=== PATIENT | female | born 1935 | race Caucasian/White ===

== ENCOUNTER 2023-04-21 18:29 | Inpatient (IN) | payer MEDICARE, OTHER, SELFPAY ==
[2023-04-21] VITALS (14 sets, daily range): BP systolic 126–147; BP diastolic 73–116; PULSE 106; O2SAT 99; BMI 21.2; BMI 18.7
[2023-04-21 11:24] LABS: % Basophils 0.3 % (0-2); % Eosinophils 1.3 % (0-6); % Immature Granulocytes 0.4 % (0-0.5); % Lymphocytes 21.1 % (20.5-51.1); % Monocytes 4.9 % (1.7-9.3); Absolute Eosinophils 0.2 10^3/uL (0-0.7); Absolute Immature Granulocytes 0.1 10^3/uL (0-0.05); Absolute Lymphocytes 2.5 10^3/uL (1.2-3.4); Absolute Monocytes 0.6 10^3/uL (0.1-0.6); Absolute Neutrophils 8.6 10^3/uL (1.4-6.5); Hematocrit 42.4 % (37.0-47.0); Hemoglobin 14.7 g/dL (12.0-16.0); Mean Corp Hgb Conc. 34.7 g/dL (33.0-37.0); Mean Corpuscular Hgb 30.6 pg (27.0-31.0); Mean Corpuscular Volume 88.3 fL (81.0-99.0); Mean Platelet Volume 9.7 fL (7.4-10.4); Nucleated Red Blood Cells % 0 %; Platelet Count 258 10^3/uL (130-400); Red Cell Dist. Width 13.9 % (11.5-14.5); White Blood Cell Count 11.9 10^3/uL (4.8-10.8)
[2023-04-21 11:37] LABS: ALT (SGPT) 47 U/L (0-35); AST (SGOT) 54 U/L (14-36); Alkaline Phosphatase 49 U/L (38-126); Blood Urea Nitrogen 31 mg/dl (7-17); Calcium 7.5 mg/dl (8.4-10.2); Carbon Dioxide 26 mmol/L (22-30); Chloride 108 mmol/L (98-107); Estimated Creatinine Clearance 28 ml/min; Glucose 94 mg/dl (70-99); Potassium 3.1 mmol/L (3.5-5.1); Sodium 136 mmol/L (135-145); Total Bilirubin 0.5 mg/dl (0.2-1.3); Total Protein 5.3 g/dl (6.3-8.2); eGFR 48.63
[2023-04-21] MEDS: NSS 500 IV (12:51)
[2023-04-21] MEDS: MAALOX 40 PO (12:51)
[2023-04-21] MEDS: PROTONIX IV 40 MG IV (12:51)
[2023-04-21 13:35] LABS: Troponin I < 0.012 ng/ml
[2023-04-21] MEDS: KCL 40 MEQ PO (13:35)
--- NOTE | 2023-04-21 16:34 | ED.GENMED ---
History of Present Illness
General
Chief Complaint: Weakness
Source: patient
Exam Limitations: none
Time Seen by Provider: 04/21/23 12:22
Nursing documentation reviewed up to this point in time: agreed with
Travel History
Have you had any contact with someone who has COVID-19?: No
Do you have any symptoms of coronavirus? Fever > 100 degrees, chills, cough, shortness of breath, sore throat, loss of taste or smell, muscle aches, or headache?: No
History of Present Illness
History of Present Illness:
Patient presents to ED from home secondary to 1 week history of persistently 'not feeling well' and decreased appetite, after taking mail ordered marijuana gummies. Denies headache. Denies dizziness. Denies blurred vision. Denies abdominal pain.
Denies chest pain or shortness of breath. Patient reports intermittent vomiting episodes. Patient has had difficult time ambulating due to generalized weakness.
Past History
Past History
ED Past Medical History: Arrthythmia (Atrial fibrillation), COPD, HTN and Other (sciatica)
ED Past Surgical History: Orthopedic
Social History
Tobacco: Smoker (smokes E-cigarettes.Stopped smoking regular cigarettes)
Alcohol: Occasional
Drug: None
Personal:
Living: with family
Review of Systems
Review of Systems
Allergies reviewed?: Yes
All Other Systems: ROS reviewed and negative except as documented in HPI and ROS
Constitutional: Reports no symptoms; Denies not done or fever
EENT: Reports no symptoms
Respiratory: Reports no symptoms
Cardiac: Reports no symptoms
ABD/GI: Reports nausea and vomiting
: Reports no symptoms
Musculoskeletal: Reports no symptoms
Skin: Reports no symptoms
Neurological: Reports weakness
Phy Exam
Physical Exam
Physical Exam:
Physical Exam
General: no apparent distress, not acutely ill. afebrile
Head: nc/at. eomi
Neck: supple. no meningeal signs.
Heart: s1/s2 regular rate and rhythm, no murmur. equal radial pulses.
Lungs: no acute respiratory distress. clear bilaterally
Abdomen: normal bowel sounds. not tender.
Neuro: alert and oriented. no focal neurological deficits
Skin: no rash
Psychiatric: well kept. interactive and cooperative
Extremities: no edema. no calf tenderness.
Course
Orders/Labs/Results
Orders:
Orders
04/21/23 11:12
EKG [Electrocardiogram (*1)] Urgent
Reason for Study: Fatigue / Weakness
EKG- Treatment ONCE
04/21/23 11:18
CBC/With Diff [Complete Blood Count/With Diff] Urgent
CMP [Comprehensive Metabolic Panel] Urgent
Lipase Urgent
Comment: LIPASE ADDED ON BY FLOOR 4:25PM 04-21-23
04/21/23 12:33
Mag Hydrox/Al Hydrox/Simeth [Maalox] 30 ml Phenobarb/Hyoscy/Atropine/Scop [] 10 ml PO NOW
Pantoprazole [Protonix IV] 40 mg IV NOW STA
04/21/23 12:34
0.9% Sodium Chloride 500 ml [Nss] 500 ml IV BOLUS
04/21/23 12:39
Phenobarb/Hyoscy/Atropine/Scop [] 10 ml .ROUTE .STK-MED ONE
04/21/23 12:40
Mag Hydrox/Al Hydrox/Simeth [Maalox] 30 ml .ROUTE .STK-MED ONE
04/21/23 12:54
Troponin I Urgent
04/21/23 13:11
Potassium Chloride [KCl] 40 meq PO NOW STA
04/21/23 16:25
Add On- LAB Urgent
Tests Added?: lipase
Physical Therapy Consult [Pt Eval And Treat] Urgent
Activity Level: Ambulate
04/21/23 16:42
Apixaban [Eliquis] 2.5 mg PO NOW STA
04/21/23 16:49
Straight cath- Treatment ONCE
04/21/23 17:00
0.9% Sodium Chloride 1000 ml [Nss] 1,000 ml IV 100 mls/hr
04/21/23 17:25
Fentanyl, Urine Routine
Urinalysis Reflex To Culture Urgent
Date Specimen was Collected: 04/21/23
Time Specimen was Collected: 12:35
Urine Drug Abuse Screen Routine
Date Specimen was Collected: 04/21/23
Time Specimen was Collected: 17:13
Urine Microscopic Reflex Cult Urgent
04/21/23 17:32
Admit/Transfer Patient As Directed
Co-Sign Provider:
Level of Care: Inpatient admission
Assign to:: Telemetry
Physician / Group: Isidoro
Diagnosis: Weakness
Reason for Telemetry: Arrhythmia
Date to Stop Telemetry: 04/24/23
Time to Stop Telemetry: 11:00
Reason for Hospitalization: See progress note
Expected length of stay greater than two midnights?: Yes
ELOS- Estimated Length of Stay in days: 2
I certify the patient meets the requirements for IP care: Yes
04/21/23 17:37
Code Status As Directed
Resuscitation Status: Full Code
Reached after discussion with pt or family/Healthcare POA: Yes
Physician note:: per pt wishes
04/21/23 20:41
0.9% Sodium Chloride 1000 ml [Nss] 1,000 ml IV 80 mls/hr
Acetaminophen [Tylenol] 650 mg PO Q4HPRN PRN
Ascorbic Acid [Vitamin C] 500 mg PO QPM
Cholecalciferol (Vitamin D3) [VITAMIN D3 (cholecalciferol)] 125 mcg PO QPM
Ondansetron Injectable [Zofran] 4 mg IV Q6HPRN PRN
oxycodone-acetaminophen 1 tablet PO Q4H PRN
04/21/23 20:41
Activity As Directed
Activity Level: As Tolerated
I&O [Intake/ Output] As Directed
Frequency: q12h
Ot Eval And Treat Routine
Pt Eval And Treat Routine
Activity Level: As Tolerated
04/21/23 22:00
Amlodipine [Norvasc] 10 mg PO HS
Gabapentin [Neurontin] 600 mg PO HS
Mirtazapine [Remeron] 30 mg PO HS
Primidone [Mysoline] 25 mg PO HS
04/21/23 22:31
COVID-19 Antigen Routine
Source: Nasal Swab
04/22/23 06:44
CBC/No Diff [Complete Blood Count/No Diff] IN AM
CMP [Comprehensive Metabolic Panel] IN AM
04/22/23 08:00
Apixaban [Eliquis] 2.5 mg PO BID
Bupropion(12Hr)Sustain Release [WELLBUTRIN SR (12 hour sustained release)] 100 mg PO DAILY
Escitalopram Oxalate [Lexapro] 20 mg PO DAILY
Hydrochlorothiazide [Oretic] 50 mg PO DAILY
Lisinopril [Zestril] 40 mg PO DAILY
naloxegol [Movantik] See Dose Instructions PO DAILY
04/24/23 11:00
DC Protocol for Telemetry ONCE
Abnormal Lab Results
04/21/23 04/21/23
11:18 17:25
WBC 11.9 H 10^3/uL
(4.8-10.8)
Abs Immat Gran (auto) 0.1 H 10^3/uL
(0-0.05)
Absolute Neuts (auto) 8.6 H 10^3/uL
(1.4-6.5)
Potassium 3.1 L mmol/L
(3.5-5.1)
Chloride 108 H mmol/L
(98-107)
BUN 31 H mg/dl
(7-17)
Creatinine 1.1 H mg/dL
(0.6-1.0)
Calcium 7.5 L mg/dl
(8.4-10.2)
AST 54 H U/L
(14-36)
ALT 47 H U/L
(0-35)
Total Protein 5.3 L g/dl
(6.3-8.2)
Albumin 3.0 L g/dl
(3.5-5.0)
Urine Ketones 1+ A
(Negative)
Leukocyte Esterase Rfl Trace A
(Negative)
Ur Oxycodone Screen Positive H
(Negative)
Ur Barbiturates Screen Positive H
(Negative)
U Marijuana (THC) Screen Positive H
(Negative)
04/21/23 11:18
04/21/23 11:18
Vital Signs
Initial and Last Documented VS:
Initial Vital Signs
Pulse Resp Pulse Ox
93 21 96
04/21/23 11:11 04/21/23 11:11 04/21/23 11:11
Last Documented Vital Signs
Temp Pulse Resp BP Pulse Ox
97.3 F 97 16 142/85 93
04/22/23 07:52 04/22/23 12:31 04/22/23 07:52 04/22/23 12:31 04/22/23 08:50
MDM/Problems Addressed
MDM/Problems Addressed:
Physical therapy evaluation unable to completed, as when patient sat up in bed, patient became lightheaded with tachycardia with heart rate in 160s. Patient laid back down in bed with improvement in symptoms. Patient's presenting symptoms along
with blood work remarkable for hypokalemia and increased BUN to creatinine ratio, suggestive of moderate dehydration from ongoing illness. Patient will be admitted for further evaluation and treatment.
Per niece, Florina Perkins, patient usually in a.fib rhythm.
*Critical Care Note
Total Time (30-74mins, 75-104mins- exclusive of procedures): Not Applicable
ED Attending Note
-
Portions of this chart may have been created with voice recognition software.� Occasional wrong word or��sound alike� substitutions may have occurred due to the inherent limitations of voice recognition software.
Discharge Plan
Departure
Patient Disposition: Admit
Date of Disposition: 04/21/23
Time of Disposition: 16:56
Presentation/result/management discussed w/ accepting MD/DO: Hospitalist
Discharge Problem:
Weakness, Atrial fibrillation
Interventions
Interventions:
*Risk Screen - Suicide Last Done: 04/21/23 11:13
*General Assessment Last Done: 04/21/23 11:13
*Neglect/Abuse Screening Last Done: 04/21/23 11:13
ED- Fall Risk Assessment Last Done: 04/21/23 11:23
*ED COVID-19 Vaccine History Last Done: 04/21/23 21:54
*Nursing Disposition Last Done: 04/21/23 20:58
ED- Cardiac Assessment Last Done: 04/21/23 11:23
ED- Neurological Assessment Last Done: 04/21/23 11:23
ED- Pulmonary Assessment Last Done: 04/21/23 11:23
Discharge Date and Time
Discharge Date/Time: 04/21/23 20:59
[2023-04-21 17:01] LABS: Lipase 217 U/L (23-300)
[2023-04-21] MEDS: NSS 1000 IV ×2 (17:31→22:21)
[2023-04-21 17:39] LABS: Urine Albumin Trace (Neg - Trace); Urine Bilirubin Negative (Negative); Urine Character Clear (Clear); Urine Color Yellow; Urine Glucose Negative (Negative); Urine Ketone 1+ (Negative); Urine Leukocyte Trace (Negative); Urine Nitrite Negative (Negative); Urine Occult Blood Negative (Negative); Urine Specific Gravity 1.015 (<1.030); Urine Urobilinogen Negative (Neg - 1+)
--- NOTE | 2023-04-21 17:42 | HPS.HSE ---
Family Physician
-
Family Physician: Derrick Olmstead
Chief Complaint
-
Weakness
History of Present Illness
Presents with weakness.
Last week she has been feeling weaker going down to help. Usually very active. 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
She has a visiting nurse telling her yesterday that she should go to the hospital and she promised her that she would today.
The nurse saw her much the same with increased weakness she called the ambulance or not the patient.
She cannot pinpoint why she started to become weak but she does admit to ordering ?marijuana Gummies from [employer].Not a prescription tx. She is not sure if it marijuana or CBD Gummies.
She started to lose appetite. She is not eating much. Nausea present. No diarrhea. For the last day or so she was having a mild to moderate central upper abdominal pain with nausea.
No fever or chills.
Denies any sore throat, cough or shortness of breath. No chest pain.
Denies any symptoms of dysuria frequency or changes in urine habits.
No joint pains or swellings.
She has permanent atrial fibrillation. She endorses she is always in A-fib. Her heart rate was up in ER but she was not having any palpitations or chest pain.
Medical History
Past Medical History
Past Medical History: Reports Arrhythmia (Atrial fibrillation), HTN and Renal Failure (Chronic kidney disease stage III)
Past Surgical History: Reports Orthopedic (Bilateral knee replacements)
Social History
Tobacco: Non-smoker
Alcohol: None
Drug: None
Family History
Family History: Not pertinent
Allergies / Home Medications
Allergies reflects when Allergies were last updated in [facility].
Home Medications with original date entered in [facility]
Allergy/Medication List:
Allergies
Allergy/AdvReac Type Severity Reaction Status Date / Time
carbetapentane Allergy Unknown Verified 06/07/21 01:35
[From Gentex 30]
guaifenesin [From Gentex 30] Allergy Unknown Verified 06/07/21 01:35
phenylephrine Allergy Unknown Verified 06/07/21 01:35
[From Gentex 30]
Home Medications
ascorbic acid (vitamin C) 500 mg tablet (Vitamin C) 500 mg PO QPM 04/16/15
naloxegol 25 mg tablet (Movantik) 25 mg PO DAILY 04/16/15
apixaban 2.5 mg tablet (Eliquis) 2.5 mg PO BID 06/07/21
mirtazapine 30 mg tablet 30 mg PO HS 06/07/21
primidone 50 mg tablet 25 mg PO HS 06/07/21
Unknown Vitamins 1 tab PO QPM 04/21/23
amlodipine 10 mg tablet 10 mg PO HS 04/21/23
bupropion HCl 100 mg tablet,12 hr sustained-release 100 mg PO DAILY 04/21/23
cholecalciferol (vitamin D3) 125 mcg (5,000 unit) tablet 125 mcg PO QPM 04/21/23
escitalopram oxalate 20 mg tablet 20 mg PO DAILY 04/21/23
gabapentin 300 mg capsule 600 mg PO HS 04/21/23
hydrochlorothiazide 50 mg tablet 50 mg PO DAILY 04/21/23
lisinopril 40 mg tablet 40 mg PO DAILY 04/21/23
oxycodone-acetaminophen 10 mg-325 mg tablet 1 tab PO Q4H PRN severe pain 04/21/23
Review of Systems
-
A 12 point ROS was completed and negative except as noted: Yes
Physical Exam
Vital Signs
Vital Signs
Temp Pulse Resp BP Pulse Ox
97.7 F 121 16 131/93 95
04/21/23 11:13 04/21/23 16:45 04/21/23 16:45 04/21/23 16:00 04/21/23 16:30
Physical Exam
General: No Apparent Distress
HEENT: Moist mucous membranes
Respiratory: Clear
Cardiac: S1/S2, Irregular Rhythm and Tachycardia
GI: Soft, Non Distended, Normal Bowel Sounds and Tender (mild discomfort in epigastric area)
Musculoskeletal: No Edema
Neuro: AO x 3 and No Motor Deficits
Psych: Calm; No Confused
Laboratory Results
-
04/21/23 11:18
04/21/23 11:18
Laboratory Results
Total Bilirubin 0.5 mg/dl (0.2-1.3) 04/21/23 11:18
AST 54 U/L (14-36) H 04/21/23 11:18
ALT 47 U/L (0-35) H 04/21/23 11:18
Alkaline Phosphatase 49 U/L (38-126) 04/21/23 11:18
Troponin I < 0.012 ng/ml 04/21/23 12:54
Lipase 217 U/L (23-300) 04/21/23 11:18
Data Reviewed
-
Lab Data: Labs Reviewed by me
Impression/Plan
-
Generalized weakness with nonspecific GI symptoms-unclear if related to Gummies she bought online or GI pathology. Will check urine drug screen and see if it is marijuana Gummies or CBD Gummies. In view of mild AST ALT elevation and abdominal pain
will get a lipase and ultrasound of the abdomen. Start on antiemetics and PPI for now. Supportive with IV fluids as clinical concern is for dehydration.
Also check for flu and COVID 19. Check urinalysis.
Permanent atrial fibrillation-heart rate elevated in the ER which is improved . Follow on telemetry. Continue with Eliquis. Not on any rate control medication. Will consider switching amlodipine to beta-stephani if needed for rate control. For
now use as needed IV BB
Chronic kidney disease3 - Creatinine 1.1 which seems to be close to baseline 0.9.
Hypokalemia-replete
Hypertension-continue the home medication and follow
Full code
[2023-04-21 17:50] LABS: Urine Red Blood Cell 0-2 /HPF (0-2); Urine Squamous Cell 16-20 /LPF (Few)
[2023-04-21 18:00] LABS: Amphetamines Negative (Negative); Barbiturates Positive (Negative); Benzodiazepines Negative (Negative); Buprenorphine Negative (Negative); Cocaine Negative (Negative); Marijuana Positive (Negative); Methadone Negative (Negative); Methamphetamines Negative (Negative); Opiates Negative (Negative); Phencyclidine Negative (Negative); Tricyclic Antidepressants Negative (Negative)
[2023-04-21] MEDS: ELIQUIS 2.5 MG PO (18:06)
[2023-04-21 18:09] LABS: Fentanyl, Urine Negative (Negative)
--- NOTE | 2023-04-21 21:06 | PTCARENOTE ---
Patient received from the ED via stretcher. Patient pulled over onto bed by staff. AAOx3. Patient has no complaints of pain. Patient made comfortable, purewick changed. Call broderick is within reach.
[2023-04-21] MEDS: VITAMIN D3 (cholecalciferol) 125 MCG PO (22:22)
[2023-04-21] MEDS: NEURONTIN 600 MG PO (22:22)
[2023-04-21] MEDS: REMERON 30 MG PO (22:22)
[2023-04-21] MEDS: VITAMIN C 500 MG PO (22:22)
[2023-04-21] MEDS: NORVASC 10 MG PO (22:22)
[2023-04-21 22:55] LABS: COVID-19 Antigen Negative (Negative)
[2023-04-21] MEDS: MYSOLINE 25 MG PO (23:23)
[2023-04-22] VITALS (7 sets, daily range): BP systolic 120–145; BP diastolic 76–92; PULSE 102
[2023-04-22 07:15] LABS: Hematocrit 37.8 % (37.0-47.0); Hemoglobin 13.1 g/dL (12.0-16.0); Mean Corp Hgb Conc. 34.7 g/dL (33.0-37.0); Mean Corpuscular Volume 89.4 fL (81.0-99.0); Mean Platelet Volume 10.1 fL (7.4-10.4); Platelet Count 227 10^3/uL (130-400); Red Blood Cell Count 4.23 10^6/uL (4.20-5.40); Red Cell Dist. Width 14.1 % (11.5-14.5); White Blood Cell Count 10.5 10^3/uL (4.8-10.8)
[2023-04-22 07:37] LABS: ALT (SGPT) 42 U/L (0-35); AST (SGOT) 43 U/L (14-36); Alkaline Phosphatase 49 U/L (38-126); Blood Urea Nitrogen 28 mg/dl (7-17); Calcium 8.4 mg/dl (8.4-10.2); Carbon Dioxide 25 mmol/L (22-30); Chloride 111 mmol/L (98-107); Estimated Creatinine Clearance 26 ml/min; Glucose 86 mg/dl (70-99); Potassium 4.4 mmol/L (3.5-5.1); Sodium 137 mmol/L (135-145); Total Bilirubin 0.3 mg/dl (0.2-1.3); Total Protein 5.3 g/dl (6.3-8.2); eGFR 48.63
[2023-04-22] MEDS: WELLBUTRIN SR (12 hour sustained release) 100 MG PO (08:57)
[2023-04-22] MEDS: ORETIC 50 MG PO (08:57)
[2023-04-22] MEDS: ZESTRIL 40 MG PO (08:57)
[2023-04-22] MEDS: LEXAPRO 20 MG PO (08:57)
[2023-04-22] MEDS: ELIQUIS 2.5 MG PO ×2 (08:57→19:41)
[2023-04-22] MEDS: NSS 1000 IV (08:57)
--- NOTE | 2023-04-22 10:20 | W.PN.HOSP.TC ---
Today's Communication/Plan
-
DC further IV fluids. Follow ultrasound of the abdomen. Consult cardiology.
DC hydrochlorothiazide.
Assessment / Plan
Assessment / Plan
Generalized weakness with nonspecific GI symptoms-unclear if related to Gummies she bought online or GI pathology.� Drug screen is positive for marijuana confirming that fact that her online Gummies are in fact marijuana Gummies . She already
calls them out..� In view of mild AST ALT elevation and abdominal pain will get ultrasound of the abdomen.�
CW diet as tolerated
CW PPI for now
Flu and COVID 19 neg.� UA neg for UTI.
DC further IV fluids.
Permanent atrial fibrillation-improved HR. Follow on telemetry.� Continue with Eliquis.� Not on any rate control medication.� Hypertension should be noted On medication and stop some of the blood pressure medication. Prefer to discontinue
hydrochlorothiazide her with her chronic kidney disease stage III. Consult cardiology
Chronic kidney disease3 -� Creatinine 1.1 which seems to be close to baseline 0.9.
Hypokalemia-replete. DC HCTZ
Hypertension-continue the home medication but DC HCTZ. Cards to consider rate control medications
Full code
Total time spent on today's encounter was 52 minutes which included time spent in counseling the patient regarding diagnosis and treatment plan as listed above, goals of care, and symptom management. Case was discussed with specialists, . All labs
and imaging personally reviewed by me. Remainder the time spent in detailed review of previous records, lab data, imaging, and other medical provider documentation.
Anticipated Discharge: Within 24 hours
Subjective/Interval History
-
Date of Service: April 22, 2023
Still bit weak but appetite is improving.
Has not walked with the PT yet.
No nausea. No abdominal pain today.
Objective Data
-
Labs:
Laboratory Results
04/22/23
06:44
WBC 10.5
Hgb 13.1
Hct 37.8
Plt Count 227
Sodium 137
Potassium 4.4 D
Chloride 111 H
Carbon Dioxide 25
BUN 28 H
Creatinine 1.1 H
Glucose 86
Calcium 8.4
Total Bilirubin 0.3
AST 43 H
ALT 42 H
Alkaline Phosphatase 49
Vital Signs:
Vital Signs
Temp Pulse Resp BP Pulse Ox
97.3 F 91 16 124/78 93
04/22/23 07:52 04/22/23 08:57 04/22/23 07:52 04/22/23 08:57 04/22/23 07:52
I&O
04/21/23 04/22/23 04/23/23
06:59 06:59 07:59
Intake Total 1440 / 1440
Output Total 50 / 50
Balance 1390 / 1390
Review of Systems
-
Constitutional: Denies Fever
EENT: Denies Sore Throat
Respiratory: Denies Cough or Trouble Breathing
Cardiac: Denies Chest Pain
Abdomen/GI: Denies Abdominal Pain, Nausea or Vomiting
Neuro: Denies Dizzy
Physical Exam
-
General: No Apparent Distress
HEENT: Moist Mucous Membranes
Respiratory: Clear to Auscultation
Cardiac: S1/S2 and Irregular Rhythm; Negative Tachycardic
GI: Soft, Nontender, Nondistended and Normal Bowel Sounds
Neuro: AO x 3
Psych: Calm; Negative Confused or Agitated
Data Reviewed
-
Labs: Labs Reviewed by me
--- NOTE | 2023-04-22 11:20 | CON.CAR ---
Addendum entered and electronically signed by Salvador Rausch MD 04/22/23 12:50:
Apparently there is an interaction between Movantik and Cardizem as it can raise Movantik levels. Will continue with low-dose Cardizem for now. May have to decrease Movantik dose.
Addendum entered and electronically signed by Salvador Rausch MD 04/22/23 12:46:
I saw and examined the patient.
The BEAD WIRE TAPER or PA's note was reviewed and I agree with the note.
Comment: General: Well developed, well nourished in NAD.
Neck: Supple, no JVD, HJR, carotids +2 B/L, no bruits bilaterally.
Heart: Non displaced PMI, Irreg, no murmurs, No S3, S4, no rubs.
Lungs: Clear to auscultation bilaterally, no wheeze, rhonchi, rubs bilaterally,
normal expiratory phase.
Abdomen: Normal bowel sounds, soft, non-tender, non-distended.
Extremities: No clubbing, cyanosis or edema bilaterally.
Neuro: Grossly nonfocal, awake, alert and oriented x3.
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 She presented after severe weakness after taking a marijuana gummy. She is
felt to be dehydrated and was given IV fluids and hydrochlorothiazide was stopped due to low potassium. Cardiology is consulted for poor heart rate control of atrial fibrillation. She reports getting depressed from Inderal which was given for her
tremor. Will add Cardizem and assess response. Will hold Norvasc and hopefully Cardizem will help keep blood pressure under control. Will increase Cardizem to 120 mg p.o. twice daily
Original Note:
Consultation
Consultation Request
Date/Time Consultation Performed: 04/22/23
Requesting Provider: Dr. Chaudhry
Performing Provider: Kiki Woodruff PA-C for Dr. Rausch
Reason for Consultation: rate control of afib
Medical History
-
Chief Complaint: weakness
History of Present Illness:
Patient is an 87-year-old female with past medical history of permanent atrial fibrillation on chronic Eliquis, essential tremor, hypertension, mild to moderate MR, chronic pain who presented to [facility] [place] for evaluation of weakness. She
states last Monday she took a marijuana gummy for the first time to try to help with her pain. She is also on several pain medications. Since that time she has had significant bilateral lower extremity weakness and feels like her legs are 'jelly'
and she cannot walk. She was admitted and hydrated with IV fluid. Potassium also supplemented and HCTZ stopped due to hypokalemia. She had previously been on Inderal for essential tremor, however was stopped as this made her feel depressed.
Currently heart rates are suboptimal in atrial fibrillation, resulting in cardiology consultation. Patient is asymptomatic.
PMH:
Permanent atrial fibrillation
Chronic anticoagulation with Eliquis
Essential tremor
Hypertension
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
CKD
Chronic pain
History of depression
History of gastric ulcer
Macular degeneration
Past Medical History
Past Medical History: Other (in HPI)
Social History
Alcohol: Occasional
Personal:
Living: With Family
Employment: Retired
Family History
Family History: Reviewed & Not Pertinent
Allergies / Home Medications
Allergy/AdvReac Type Severity Reaction Status Date / Time
carbetapentane Allergy Unknown Verified 06/07/21 01:35
[From Gentex 30]
guaifenesin [From Gentex 30] Allergy Unknown Verified 06/07/21 01:35
phenylephrine Allergy Unknown Verified 06/07/21 01:35
[From Gentex 30]
Medication Instructions Recorded Confirmed Type
ascorbic acid (vitamin C) 500 mg 500 mg PO QPM 04/16/15 04/21/23 History
tablet (Vitamin C)
naloxegol 25 mg tablet (Movantik) 25 mg PO DAILY 04/16/15 04/21/23 History
apixaban 2.5 mg tablet (Eliquis) 2.5 mg PO BID 06/07/21 04/21/23 History
mirtazapine 30 mg tablet 30 mg PO HS 06/07/21 04/21/23 History
primidone 50 mg tablet 25 mg PO HS 06/07/21 04/21/23 History
Unknown Vitamins 1 tab PO QPM 04/21/23 04/21/23 History
amlodipine 10 mg tablet 10 mg PO HS 04/21/23 04/21/23 History
bupropion HCl 100 mg tablet,12 hr 100 mg PO DAILY 04/21/23 04/21/23 History
sustained-release
cholecalciferol (vitamin D3) 125 125 mcg PO QPM 04/21/23 04/21/23 History
mcg (5,000 unit) tablet
escitalopram oxalate 20 mg tablet 20 mg PO DAILY 04/21/23 04/21/23 History
gabapentin 300 mg capsule 600 mg PO HS 04/21/23 04/21/23 History
hydrochlorothiazide 50 mg tablet 50 mg PO DAILY 04/21/23 04/21/23 History
lisinopril 40 mg tablet 40 mg PO DAILY 04/21/23 04/21/23 History
oxycodone-acetaminophen 10 mg-325 1 tab PO Q4H PRN severe pain 04/21/23 04/21/23 History
mg tablet
Review of Systems
-
History Source: Patient
All other systems: Negative unless noted
Physical Exam
Vital Signs
Temp Pulse Resp BP Pulse Ox
97.3 F 91 16 124/78 93
04/22/23 07:52 04/22/23 08:57 04/22/23 07:52 04/22/23 08:57 04/22/23 08:50
Lab Results
04/22/23 06:44
04/22/23 06:44
Troponin I < 0.012 ng/ml 04/21/23 12:54
Physical Exam
General: No Apparent Distress and Comfortable
HEENT: Normocephalic, Anicteric and Moist Mucous Membranes
Respiratory: Clear and Non Labored Respirations
Cardiac: S1/S2, Irregular Rhythm and Murmur
GI: Soft, Non Tender, Non Distended and Normal Bowel Sounds
Musculoskeletal: No Clubbing, No Cyanosis and No Edema
Skin: Warm and Dry
Neuro: AO x 3 and Nonfocal/Grossly Intact
Impression / Plan
-
Primary Arcgis Developer: Dr. Rausch
Assessment:
Presentation with B/L LE weakness
UDS + marijuana
Hypokalemia
Mild LFT elevation
Permanent atrial fibrillation, with suboptimal HR control
Chronic anticoagulation with Eliquis
Essential tremor
Hypertension
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
CKD
Chronic pain
History of depression
History of gastric ulcer
Macular degeneration
ECHO 07/2019: EF 70%, mild LVH, aortic sclerosis, trace AR, posterior mitral leaflet prolapse MAC and mild to moderate MR, markedly dilated left atrium, normal right heart with mild TR
Plan:
-Patient presented with bilateral lower extremity weakness after taking a marijuana gummy for the first time last Monday. UDS positive for marijuana. Evaluation per primary service. PT/OT evaluations.
-Cardiology consulted due to suboptimal heart rate control in atrial fibrillation. Previous depression on Inderal, so will avoid beta-blockers. Will stop Norvasc and place on Cardizem CD 120 mg daily
-Follow heart rate control on telemetry, and can uptitrate Cardizem as needed
-Outpatient HCTZ has been stopped this admission due to CKD and hypokalemia upon arrival. Continue lisinopril 40 mg daily
-Continue Eliquis 2.5 mg twice daily
-Last echo from 2019 with results as above
-For abdominal ultrasound due to mild LFT elevation
-check TSH
-d/w hospitalist
Data Reviewed
-
EKG: Tracing Personally Visualized and interpreted
Medical Tests (Nuc Med, Echo etc): Report Reviewed by me
Labs: Labs Reviewed by me
Old Records: Reviewed
[2023-04-22] MEDS: CARDIZEM CD 120 MG PO (12:31)
[2023-04-22] MEDS: VITAMIN C 500 MG PO (17:09)
[2023-04-22] MEDS: VITAMIN D3 (cholecalciferol) 125 MCG PO (17:10)
[2023-04-22] MEDS: NEURONTIN 600 MG PO (21:29)
[2023-04-22] MEDS: REMERON 30 MG PO (21:30)
[2023-04-22] MEDS: MYSOLINE 25 MG PO (21:30)
[2023-04-22] MEDS: PERCOCET 5/325 2 TABLET PO (22:04)
[2023-04-23 03:24] VITALS: BP 120/72
--- NOTE | 2023-04-23 06:30 | W.PN.UPDATE ---
Update Note
Progress Note Update
RN reports pt Drowsy (but remains aaox3). PT is on multiple meds that can cause drowsiness (gabapentin, primidone, remeron and percocet prn). RN states seemed more drowsy after Percocet. For now will decrease perc to 5mg .
--- NOTE | 2023-04-23 06:47 | PTCARENOTE ---
PT very drowsy but arousable after administration of percocet House ATMOSPHERIC SCIENTIST aware order changed from 2 tab to 1 tab.
[2023-04-23 07:29] LABS: ALT (SGPT) 41 U/L (0-35); AST (SGOT) 40 U/L (14-36); Albumin 3.2 g/dl (3.5-5.0); Alkaline Phosphatase 50 U/L (38-126); Blood Urea Nitrogen 26 mg/dl (7-17); Calcium 8.6 mg/dl (8.4-10.2); Carbon Dioxide 26 mmol/L (22-30); Chloride 108 mmol/L (98-107); Estimated Creatinine Clearance 28 ml/min; Glucose 107 mg/dl (70-99); Potassium 4.2 mmol/L (3.5-5.1); Sodium 135 mmol/L (135-145); Total Bilirubin 0.4 mg/dl (0.2-1.3); Total Protein 5.5 g/dl (6.3-8.2); eGFR 54.53
[2023-04-23 09:06] VITALS: BP 124/83
[2023-04-23] MEDS: WELLBUTRIN SR (12 hour sustained release) 100 MG PO (09:12)
[2023-04-23] MEDS: CARDIZEM CD 120 MG PO (09:12)
[2023-04-23] MEDS: LEXAPRO 20 MG PO (09:13)
[2023-04-23] MEDS: ELIQUIS 2.5 MG PO ×2 (09:13→20:49)
[2023-04-23] MEDS: ZESTRIL 40 MG PO (09:13)
--- NOTE | 2023-04-23 09:47 | W.PN.HOSP.TC ---
Today's Communication/Plan
-
GI consult
PT eval
Assessment / Plan
Assessment / Plan
Generalized weakness with nonspecific GI symptoms-suspect related to Gummies she bought online or GI pathology.� Drug screen is positive for marijuana confirming that fact that her online Gummies are in fact marijuana Gummies . She already tossed
them out..� In view of mild AST ALT elevation and abdominal pain ultrasound of the abdomen was obtained.�
CW diet as tolerated
CW PPI for now
Flu and COVID 19 neg.� UA neg for UTI.
Consult GI for mild transamnitis and intrahepatic biliary ductal at the jose hepatis
Permanent atrial fibrillation-improved HR. Follow on telemetry.� Continue with Eliquis.� Not on any rate control medication.� Elevated heart rate on admission .Initiated on Cardizem with improved VR. Appreciate cardiology improvement.
Chronic kidney disease3 -� Creatinine 1.1 which seems to be close to baseline 0.9.
Hypokalemia-replete. DC HCTZ
Hypertension-continue the home medication but DC HCTZ with CKD. BP under goal.
Full code
Anticipated Discharge: Within 24 hours
Subjective/Interval History
-
Date of Service: April 23, 2023
Feels okay. Has not worked with PT yet.
No nausea vomiting. Tolerating diet. Denies any further abdominal pain.
Objective Data
-
Labs:
Laboratory Results
04/23/23
06:48
Sodium 135
Potassium 4.2
Chloride 108 H
Carbon Dioxide 26
BUN 26 H
Creatinine 1.0
Glucose 107 H
Calcium 8.6
Total Bilirubin 0.4
AST 40 H
ALT 41 H
Alkaline Phosphatase 50
Vital Signs:
Vital Signs
Temp Pulse Resp BP Pulse Ox
97.8 F 77 17 124/83 97
04/23/23 09:06 04/23/23 09:12 04/23/23 09:06 04/23/23 09:12 04/23/23 09:06
I&O
04/22/23 04/23/23 04/24/23
05:59 06:59 06:59
Intake Total
Output Total
Balance
Review of Systems
-
Constitutional: Denies Fever or Chills
Respiratory: Denies Trouble Breathing
Cardiac: Denies Chest Pain
Neuro: Denies Dizzy
Physical Exam
-
General: No Apparent Distress
HEENT: Moist Mucous Membranes
Respiratory: Clear to Auscultation
Cardiac: S1/S2 and Irregular Rhythm; Negative Tachycardic
GI: Soft, Nontender, Nondistended and Normal Bowel Sounds
Neuro: AO x 3
Psych: Calm
Data Reviewed
-
Ultrasound: Report Reviewed by me (US abdomen)
Labs: Labs Reviewed by me
[2023-04-23 11:52] VITALS: BP 137/91
--- NOTE | 2023-04-23 12:39 | W.PN.CARDCBS ---
Today's Communication / Plan
-
Stable cardiology status with adequate heart rate in A-fib and reasonable blood pressure
Sign off
Impression / Plan
-
Primary General Repairer: Dr. Rausch
Assessment:
Presentation with B/L LE weakness
UDS + marijuana
Hypokalemia
Mild LFT elevation
Permanent atrial fibrillation, with suboptimal HR control
Chronic anticoagulation with Eliquis
Essential tremor
Hypertension
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
CKD
Chronic pain
History of depression
History of gastric ulcer
Macular degeneration
ECHO 07/2019: EF 70%, mild LVH, aortic sclerosis, trace AR, posterior mitral leaflet prolapse MAC and mild to moderate MR, markedly dilated left atrium, normal right heart with mild TR
Plan:
Heart rate control in atrial fibrillation is reasonable
Blood pressure is reasonable with substituting Cardizem for heart rate control in place of Norvasc and outpatient HCTZ has been stopped this admission due to CKD and hypokalemia upon arrival.
Movantik dose was decreased with the start of Cardizem given an interaction between these 2 meds. This may complicate increasing Cardizem dose further.
Continue Eliquis
Continue lisinopril 40 mg daily for hypertension as well
Cardiovascular stable
Will sign off
Call with questions
Progress Note - General Repairer
Subjective
Date of Service: April 23, 2023
No complaints
Objective
Labs:
04/22/23 06:44
04/23/23 06:48
Labs
Hgb 13.1 g/dL (12.0-16.0) 04/22/23 06:44
Hct 37.8 % (37.0-47.0) 04/22/23 06:44
Plt Count 227 10^3/uL (130-400) 04/22/23 06:44
Sodium 135 mmol/L (135-145) 04/23/23 06:48
Potassium 4.2 mmol/L (3.5-5.1) 04/23/23 06:48
BUN 26 mg/dl (7-17) H 04/23/23 06:48
Creatinine 1.0 mg/dL (0.6-1.0) 04/23/23 06:48
Glucose 107 mg/dl (70-99) H 04/23/23 06:48
Troponins
04/21/23
12:54
Troponin I < 0.012
Vital Signs and I&O:
Vital Signs
Temp Pulse Resp BP Pulse Ox
98.2 F 83 18 137/91 96
04/23/23 11:52 04/23/23 11:52 04/23/23 11:52 04/23/23 11:52 04/23/23 11:52
Vital Signs
Temp Pulse Resp BP Pulse Ox
98.2 F 83 18 137/91 96
04/23/23 11:52 04/23/23 11:52 04/23/23 11:52 04/23/23 11:52 04/23/23 11:52
Intake & Output
04/21/23 04/22/23 04/23/23 04/24/23
05:59 05:59 06:59 06:59
Intake Total
Output Total
Balance
Physical Exam
Physical Exam
General: Well developed, well nourished in NAD.
Neck: Supple, no JVD, HJR, carotids +2 B/L, no bruits bilaterally.
Heart: Non displaced PMI, Irreg, no murmurs, No S3, S4, no rubs.
Lungs: Scattered rhonchi
Extremities: No clubbing, cyanosis or edema bilaterally.
Neuro: Grossly nonfocal, awake, alert and oriented x3.
--- NOTE | 2023-04-23 14:03 | CON.GI ---
Consultation
-
Date/Time Consultation Requested: 04/23/2023
Date/Time Consultation Performed: 04/23/2023
Performing Provider: Alonzo Yoo
Reason for Consultation: elevated LFT, abnormal US
Medical History
Chief Complaint / HPI
Chief Complaint: elevated LFT, abnormal US
History of Present Illness:
The patient is a 87-year-old female with history of A-fib on Eliquis, HTN, and CKD stage III who presents for weakness. She is usually an active person but became excessively weak after taking marijuana Gummies. During her evaluation she was noted
to have mild transaminase elevations and had RUQ US which showed borderline dilation of intrahepatic ducts at the jose hepatis region. GI is being consulted for evaluation of this. She denies history of jaundice and known liver disease. She
denies RUQ abdominal pain but reports intermittent epigastric pain which occurs every few months. Denies recent weight loss.
Past Medical History
Past Medical History: Arrhythmias, HTN, Hypercholesterolemia and Other
Past Surgical History: Other
Social History
Tobacco: Non-Smoker
Alcohol: None
Family History
Family History: Reviewed & Not Pertinent
Allergies / Home Medications
Allergy/AdvReac Type Severity Reaction Status Date / Time
carbetapentane Allergy Unknown Verified 06/07/21 01:35
[From Gentex 30]
guaifenesin [From Gentex 30] Allergy Unknown Verified 06/07/21 01:35
phenylephrine Allergy Unknown Verified 06/07/21 01:35
[From Gentex 30]
Medication Instructions Recorded
ascorbic acid (vitamin C) 500 mg 500 mg PO QPM 04/16/15
tablet (Vitamin C)
naloxegol 25 mg tablet (Movantik) 25 mg PO DAILY 04/16/15
apixaban 2.5 mg tablet (Eliquis) 2.5 mg PO BID 06/07/21
mirtazapine 30 mg tablet 30 mg PO HS 06/07/21
primidone 50 mg tablet 25 mg PO HS 06/07/21
Unknown Vitamins 1 tab PO QPM 04/21/23
amlodipine 10 mg tablet 10 mg PO HS 04/21/23
bupropion HCl 100 mg tablet,12 hr 100 mg PO DAILY 04/21/23
sustained-release
cholecalciferol (vitamin D3) 125 125 mcg PO QPM 04/21/23
mcg (5,000 unit) tablet
escitalopram oxalate 20 mg tablet 20 mg PO DAILY 04/21/23
gabapentin 300 mg capsule 600 mg PO HS 04/21/23
hydrochlorothiazide 50 mg tablet 50 mg PO DAILY 04/21/23
lisinopril 40 mg tablet 40 mg PO DAILY 04/21/23
oxycodone-acetaminophen 10 mg-325 1 tab PO Q4H PRN severe pain 04/21/23
mg tablet
Review of Systems
Vital Signs
Temp Pulse Resp BP Pulse Ox
98.2 F 83 18 137/91 96
04/23/23 11:52 04/23/23 11:52 04/23/23 11:52 04/23/23 11:52 04/23/23 11:52
Physical Exam
Exam
General: Well Developed and Well Nourished
HEENT: Normocephalic
Respiratory: Clear
Cardiac: S1/S2
GI: Soft, Non Tender and Non Distended
Results
WBC 10.5 10^3/uL (4.8-10.8) 04/22/23 06:44
Hgb 13.1 g/dL (12.0-16.0) 04/22/23 06:44
Hct 37.8 % (37.0-47.0) 04/22/23 06:44
MCV 89.4 fL (81.0-99.0) 04/22/23 06:44
Plt Count 227 10^3/uL (130-400) 04/22/23 06:44
Absolute Neuts (auto) 8.6 10^3/uL (1.4-6.5) H 04/21/23 11:18
Sodium 135 mmol/L (135-145) 04/23/23 06:48
Potassium 4.2 mmol/L (3.5-5.1) 04/23/23 06:48
Chloride 108 mmol/L (98-107) H 04/23/23 06:48
Carbon Dioxide 26 mmol/L (22-30) 04/23/23 06:48
BUN 26 mg/dl (7-17) H 04/23/23 06:48
Creatinine 1.0 mg/dL (0.6-1.0) 04/23/23 06:48
Calcium 8.6 mg/dl (8.4-10.2) 04/23/23 06:48
Total Bilirubin 0.4 mg/dl (0.2-1.3) 04/23/23 06:48
AST 40 U/L (14-36) H 04/23/23 06:48
ALT 41 U/L (0-35) H 04/23/23 06:48
Alkaline Phosphatase 50 U/L (38-126) 04/23/23 06:48
Lipase 217 U/L (23-300) 04/21/23 11:18
Diagnostic Image Results:
Prior GI Procedures:
EGD:
Colonoscopy:
Assessment / Plan
-
The patient is a 87-year-old female with history of A-fib on Eliquis, HTN, and CKD stage III who presents for weakness after taking marijuana Gummies. During her evaluation she was noted to have mild transaminase elevations and had RUQ US which
showed borderline dilation of intrahepatic ducts at the jose hepatis region.
Impression / Rec:
1. LFT elevation and abnormal RUQ US - she has mild transaminase elevations. Normal bili / alk phos. Abdo US showed borderline dilation of intrahepatic ducts at the jose hepatis region. No recent abdominal imaging for review, her last CT of abd
was in 2010 (normal study). Her LFT elevation and US findings do not correlate, as her LFT is not obstructive/cholestatic pattern. The reported dilation is borderline, not obvious dilation. She denies history of jaundice and known liver disease.
Denies recent weight loss. Can evaluate this further with advanced cross sectional imaging, given her CKD stage 3, I would recommend MRI/MRCP if further imaging is to be pursued.
Total Time Spent with Patient (in minutes): 55
-
-
Thank you for consultation and allowing me to participate in the patient's care. Please call the telephone instrument supervisor GI physician during the after hours with any questions or concerns.
[2023-04-23 15:40] VITALS: BP 135/85
[2023-04-23] MEDS: VITAMIN D3 (cholecalciferol) 125 MCG PO (17:01)
[2023-04-23] MEDS: VITAMIN C 500 MG PO (17:01)
[2023-04-23] MEDS: PERCOCET 5/325 1 TABLET PO (19:09)
[2023-04-23 20:19] VITALS: BP 136/89
[2023-04-23] MEDS: NEURONTIN 600 MG PO (21:22)
[2023-04-23] MEDS: REMERON 30 MG PO (21:22)
[2023-04-23] MEDS: MYSOLINE 25 MG PO (21:23)
[2023-04-23 22:31] VITALS: BP 114/69
[2023-04-24] VITALS (7 sets, daily range): BP systolic 108–155; BP diastolic 71–89; PULSE 91; BMI 18.7
[2023-04-24] MEDS: CARDIZEM CD 120 MG PO (09:37)
[2023-04-24] MEDS: ELIQUIS 2.5 MG PO ×2 (09:37→20:02)
[2023-04-24] MEDS: LEXAPRO 20 MG PO (09:37)
[2023-04-24] MEDS: WELLBUTRIN SR (12 hour sustained release) 100 MG PO (09:38)
[2023-04-24] MEDS: ZESTRIL 40 MG PO (09:38)
[2023-04-24] MEDS: DULCOLAX 10 MG PO (09:39)
[2023-04-24 09:45] LABS: % Basophils 0.4 % (0-2); % Eosinophils 4.3 % (0-6); % Immature Granulocytes 0.4 % (0-0.5); % Lymphocytes 24.7 % (20.5-51.1); % Monocytes 4.5 % (1.7-9.3); % Neutrophils 65.7 % (42.2-75.2); Absolute Eosinophils 0.4 10^3/uL (0-0.7); Absolute Lymphocytes 2.2 10^3/uL (1.2-3.4); Absolute Monocytes 0.4 10^3/uL (0.1-0.6); Absolute Neutrophils 5.9 10^3/uL (1.4-6.5); Hematocrit 36.1 % (37.0-47.0); Hemoglobin 12.3 g/dL (12.0-16.0); Mean Corp Hgb Conc. 34.1 g/dL (33.0-37.0); Mean Corpuscular Hgb 31.1 pg (27.0-31.0); Mean Corpuscular Volume 91.2 fL (81.0-99.0); Mean Platelet Volume 10.2 fL (7.4-10.4); Nucleated Red Blood Cells % 0 %; Platelet Count 248 10^3/uL (130-400); Red Blood Cell Count 3.96 10^6/uL (4.20-5.40); Red Cell Dist. Width 13.8 % (11.5-14.5)
[2023-04-24 10:00] LABS: ALT (SGPT) 37 U/L (0-35); AST (SGOT) 31 U/L (14-36); Albumin 3.1 g/dl (3.5-5.0); Alkaline Phosphatase 48 U/L (38-126); Blood Urea Nitrogen 19 mg/dl (7-17); Calcium 8.7 mg/dl (8.4-10.2); Carbon Dioxide 28 mmol/L (22-30); Chloride 105 mmol/L (98-107); Estimated Creatinine Clearance 28 ml/min; Glucose 99 mg/dl (70-99); Potassium 4.5 mmol/L (3.5-5.1); Sodium 133 mmol/L (135-145); Total Bilirubin 0.3 mg/dl (0.2-1.3); Total Protein 5.3 g/dl (6.3-8.2); eGFR 54.53
--- NOTE | 2023-04-24 12:15 | PTCARENOTE ---
Pt c/o of feeling like her heart is racing. Pt chronic afib on monitor.Rates 80s-110s at rest, 120s with exertion. VSS. Spoke with MD additional cardiaracelis given, Pt call broderick within reach, plan of care ongoing.
--- NOTE | 2023-04-24 12:30 | W.PN.GI.CBS2 ---
Addendum entered and electronically signed by Alonzo Yoo MD 04/24/23 18:08:
I saw and examined the patient.
The PA's note was reviewed and I agree with the note.
Comment:
LFT improving, can consider MRI/MRCP given the borderline intrahepatic ductal dilation, however pt wants to hold off for now. Follow LFT. GI will s/o.
Original Note:
Today's Communication / Plan
-
LFT's trending down only minimal elevated ALT today
consider MRI if do not normalized
pt wishes to hold MRI for now with hx CKD
slight nausea with large breakfast- cont to monitor
Assessment / Plan
-
The patient is a 87-year-old female with history of A-fib on Eliquis, HTN, and CKD stage III who presents for weakness after taking marijuana Gummies. During her evaluation she was noted to have mild transaminase elevations and had RUQ US which
showed borderline dilation of intrahepatic ducts at the jose hepatis region.
Impression / Rec:
-elevated LFT's- improving
-weakness on admission
-recent marijuana gummies
-afib on eliquis prior to admission with some increase HR on admission
-HTN
PLAN:
LFT's trending down only minimal elevated ALT today
consider MRI if do not normalized
pt wishes to hold MRI for now with hx CKD
slight nausea with large breakfast- cont to monitor
Subjective
Subjective
Date of Service: April 24, 2023
3/8 murcia stool on regular diet
Objective
Data Reviewed
Laboratory Data:
Laboratory Results
04/24/23 08:58
04/24/23 08:58
Laboratory Results
Total Bilirubin 0.3 mg/dl (0.2-1.3) 04/24/23 08:58
AST 31 U/L (14-36) 04/24/23 08:58
ALT 37 U/L (0-35) H 04/24/23 08:58
Alkaline Phosphatase 48 U/L (38-126) 04/24/23 08:58
Lipase 217 U/L (23-300) 04/21/23 11:18
Vital Signs and I&O:
Vital Signs
Temp Pulse Resp BP Pulse Ox
98.0 F 100 18 128/88 96
04/24/23 11:18 04/24/23 11:18 04/24/23 11:18 04/24/23 11:18 04/24/23 11:49
I&O
04/23/23 04/24/23 04/25/23
06:59 06:59 06:59
Intake Total
Output Total 500 / 500
Balance -500 / -500
Physical Exam
Physical Exam
HEENT: Anicteric and Moist mucous membranes
Cardiology: Normal Sinus Rhythm
Pulmonary: Clear
GI: Soft, Non Distended and Non Tender
Extremities: No Edema
Neuro: Non Focal
[2023-04-24] MEDS: PERCOCET 5/325 1 TABLET PO ×2 (12:44→20:02)
--- NOTE | 2023-04-24 12:55 | W.PN.HOSP.TC ---
Today's Communication/Plan
-
monitor vitals
see plan
Increase diltiazem to 180
Will decrease lisinopril
PT/OT
GI to see
Assessment / Plan
Assessment / Plan
Generalized weakness with nonspecific GI symptoms-suspect related to Gummies she bought online or GI pathology.� Drug screen is positive for marijuana confirming that fact that her online Gummies are in fact marijuana Gummies . She already tossed
them out.� In view of mild AST ALT elevation and abdominal pain ultrasound of the abdomen was obtained.� Borderline dilation of intrahepatic ducts. Borderline thickening of gallbladder.
CW diet as tolerated
CW PPI for now
Flu and COVID 19 neg.� UA neg for UTI.
GI following; defer MRI to GI
Permanent atrial fibrillation-improved HR. Follow on telemetry.� Continue with Eliquis.� Not on any rate control medication.� Elevated heart rate on admission .Initiated on Cardizem with improved VR. Appreciate cardiology improvement.HR still
elevated; will increase diltiazem to 180
Chronic kidney disease3 -� Creatinine 1which seems to be close to baseline 0.9.
Hyponatremia
monitor
Hypokalemia-resolved
Hypertension-continue the home medication but DC HCTZ with CKD. Decrease lisinopril. Increasing diltiazem
Full code
PT/OT rec SNF
General: No Apparent Distress
HEENT: Moist Mucous Membranes
Respiratory: Clear to Auscultation
Cardiac: S1/S2 and Irregular Rhythm; Negative Tachycardic
GI: Soft, Nontender, Nondistended and Normal Bowel Sounds
Neuro: AO x 3
Psych: Calm
Anticipated Discharge: Within 24 hours
Subjective/Interval History
-
Date of Service: April 24, 2023
denies pain
Objective Data
-
Labs:
Laboratory Results
04/24/23
08:58
WBC 9.0
Hgb 12.3
Hct 36.1 L
Plt Count 248
Sodium 133 L
Potassium 4.5
Chloride 105
Carbon Dioxide 28
BUN 19 H
Creatinine 1.0
Glucose 99
Calcium 8.7
Total Bilirubin 0.3
AST 31
ALT 37 H
Alkaline Phosphatase 48
Vital Signs:
Vital Signs
Temp Pulse Resp BP Pulse Ox
98.0 F 100 18 128/88 96
04/24/23 11:18 04/24/23 11:18 04/24/23 11:18 04/24/23 11:18 04/24/23 11:49
I&O
04/23/23 04/24/23 04/25/23
06:59 06:59 06:59
Intake Total
Output Total 500 / 500
Balance -500 / -500
--- NOTE | 2023-04-24 12:58 | CM ---
Cm met with pt bedside
Pt resides with her spouse (he has advanced Alz)
he has private duty 05/09 caregivers through [employer]
Pt is independent with her ADLs, no longer drives
She has aRW and SPC for use as needed
PCP- Derrick Olmstead
Rx- [facility]
Spouse listed as primary contacted
With permission call to niece/Florina
Update provided
Florina is primary contact and nephew/Price Molina will be secondary
Update to admissions
SNF recommended, PAC provided
Pt requesting referral to 1). [facility]). [facility] 3). [facility] 4). [facility] and and referrals sent via care Port
Pt has qualifying stay
Discharge Disposition- SNF
[2023-04-24] MEDS: CARDIZEM 5 MG IV (13:25)
[2023-04-24] MEDS: VITAMIN C 500 MG PO (17:08)
[2023-04-24] MEDS: VITAMIN D3 (cholecalciferol) 125 MCG PO (17:08)
[2023-04-24] MEDS: REMERON 30 MG PO (20:02)
[2023-04-24] MEDS: NEURONTIN 600 MG PO (20:03)
[2023-04-24] MEDS: MYSOLINE 25 MG PO (20:03)
[2023-04-25 03:10] VITALS: BP 109/66
[2023-04-25 07:55] VITALS: BP 117/70
[2023-04-25 08:36] LABS: % Basophils 0.6 % (0-2); % Eosinophils 3.8 % (0-6); % Immature Granulocytes 0.4 % (0-0.5); % Lymphocytes 25.9 % (20.5-51.1); % Monocytes 5.2 % (1.7-9.3); % Neutrophils 64.1 % (42.2-75.2); Absolute Basophils 0.1 10^3/uL (0-0.2); Absolute Eosinophils 0.4 10^3/uL (0-0.7); Absolute Lymphocytes 2.5 10^3/uL (1.2-3.4); Absolute Monocytes 0.5 10^3/uL (0.1-0.6); Absolute Neutrophils 6.2 10^3/uL (1.4-6.5); Mean Corp Hgb Conc. 34.3 g/dL (33.0-37.0); Mean Corpuscular Hgb 31.3 pg (27.0-31.0); Mean Corpuscular Volume 91.4 fL (81.0-99.0); Mean Platelet Volume 10.3 fL (7.4-10.4); Nucleated Red Blood Cells % 0 %; Platelet Count 256 10^3/uL (130-400); Red Blood Cell Count 3.83 10^6/uL (4.20-5.40); White Blood Cell Count 9.6 10^3/uL (4.8-10.8)
[2023-04-25] MEDS: CARDIZEM CD 180 MG PO (09:20)
[2023-04-25] MEDS: ELIQUIS 2.5 MG PO (09:21)
[2023-04-25] MEDS: LEXAPRO 20 MG PO (09:21)
[2023-04-25] MEDS: WELLBUTRIN SR (12 hour sustained release) 100 MG PO (09:21)
[2023-04-25] MEDS: FLUSH (NSS) 1 FLUSH IV (09:21)
[2023-04-25] MEDS: ZESTRIL 20 MG PO (09:21)
[2023-04-25 09:23] LABS: ALT (SGPT) 34 U/L (0-35); AST (SGOT) 28 U/L (14-36); Alkaline Phosphatase 46 U/L (38-126); Blood Urea Nitrogen 24 mg/dl (7-17); Calcium 8.7 mg/dl (8.4-10.2); Carbon Dioxide 27 mmol/L (22-30); Chloride 102 mmol/L (98-107); Estimated Creatinine Clearance 28 ml/min; Glucose 90 mg/dl (70-99); Potassium 4.7 mmol/L (3.5-5.1); Sodium 136 mmol/L (135-145); Total Bilirubin 0.2 mg/dl (0.2-1.3); Total Protein 5.2 g/dl (6.3-8.2); eGFR 54.53
--- NOTE | 2023-04-25 11:35 | W.PN.HOSP.TC ---
Addendum entered and electronically signed by Favian Clark MD 04/25/23 14:23:
Time of discharge 36 minutes
Original Note:
Today's Communication/Plan
-
Monitor vital signs and see plan
Continue with diltiazem
Lisinopril with holding parameters
Dispo planning; needs SNF
Assessment / Plan
Assessment / Plan
Generalized weakness with nonspecific GI symptoms-suspect related to Gummies she bought online or GI pathology.� Drug screen is positive for marijuana confirming that fact that her online Gummies are in fact marijuana Gummies . She already tossed
them out.� In view of mild AST ALT elevation and abdominal pain ultrasound of the abdomen was obtained.� Borderline dilation of intrahepatic ducts. Borderline thickening of gallbladder.
CW diet as tolerated
CW PPI for now
Flu and COVID 19 neg.� UA neg for UTI.
GI following; Gi discussed MRI with patient and currently decided to hold off; patient denies abdominal pain. Will have patient follow-up with GI outpatient
Permanent atrial fibrillation-improved HR. Follow on telemetry.� Continue with Eliquis.� Not on any rate control medication.� Elevated heart rate on admission .Initiated on Cardizem with improved VR. Appreciate cardiology improvement.HR still
elevated at times; will increase diltiazem to 180
Chronic kidney disease3 -� Creatinine 1which seems to be close to baseline 0.9.
Hyponatremia
monitor
Hypokalemia-resolved
Hypertension-continue the home medication but DC HCTZ with CKD. Decrease lisinopril. Increasing diltiazem
Full code
PT/OT rec SNF
General: No Apparent Distress
HEENT: Moist Mucous Membranes
Respiratory: Clear to Auscultation
Cardiac: S1/S2 and Irregular Rhythm; Negative Tachycardic
GI: Soft, Nontender, Nondistended and Normal Bowel Sounds
Neuro: AO x 3
Psych: Calm
Anticipated Discharge: Today
Subjective/Interval History
-
Date of Service: April 25, 2023
denies pain
Objective Data
-
Labs:
Laboratory Results
04/25/23
07:36
WBC 9.6
Hgb 12.0
Hct 35.0 L
Plt Count 256
Sodium 136
Potassium 4.7
Chloride 102
Carbon Dioxide 27
BUN 24 H
Creatinine 1.0
Glucose 90
Calcium 8.7
Total Bilirubin 0.2
AST 28
ALT 34
Alkaline Phosphatase 46
Vital Signs:
Vital Signs
Temp Pulse Resp BP Pulse Ox
98.1 F 71 18 117/70 96
04/25/23 07:55 04/25/23 09:21 04/25/23 07:55 04/25/23 09:21 04/25/23 09:20
I&O
04/24/23 04/25/23 04/26/23
06:59 06:59 06:59
Intake Total 480 / 480
Output Total 500 / 500 600 / 600
Balance -500 / -500 -120 / -120
[2023-04-25 11:50] VITALS: BMI 18.7
[2023-04-25 11:55] VITALS: BP 130/84
[2023-04-25] MEDS: PERCOCET 5/325 1 TABLET PO (12:26)
--- NOTE | 2023-04-25 14:22 | W.DCSUMMARY ---
Discharge Summary
Discharge Data
Date of Admission: 04/21/23
Date of Discharge: 04/25/23
-
Pending Results: No
Hospital Course
87-year-old female with past medical history of atrial fibrillation, CKD, hypertension, marijuana use came to the hospital with generalized weakness with mildly elevated LFTs. Patient was seen by GI throughout hospitalization. Ultrasound of the
abdomen was done which showed borderline dilation of intrahepatic ducts. This was discussed with the patient by GI and MRI was initially considered however given patient improvement manage symptoms GI and patient wanted to hold off on MRI. Patient
atrial fibrillation was also uncontrolled for which Cardizem was started. To give some room to her blood pressure, hydrochlorothiazide was stopped. Patient lisinopril was also decreased. Patient was also evaluated by physical therapy who
recommended SNF. Once her symptoms were improving, she was then discharged to SNF with instructions to follow-up with all her physicians outpatient.
Discharge Plan
-
Patient Disposition: Skilled Nursing/SNF
Discharge Diagnosis/Procedures: Permanent atrial fibrillation
Borderline dilation of intrahepatic ducts
Essential hypertension
Hypokalemia
Diet: As tolerated
Activity: With assistance and As tolerated
Driving Restrictions: Not until seen by your Dr
Bathing Restrictions: None
Activity Restrictions/Additional Instructions:
Follow-up with gastroenterology closely outpatient for mild intrahepatic ductal dilation
Referrals:
Derrick Olmstead, [Family Provider] - in less than 1 week
Salvador Rausch MD [Active] -
Alonzo Yoo MD [Active] -
Additional Discharge Medication Instructions: Stop amlodipine and hydrochlorothiazide
Prescriptions:
New
diltiazem HCl 180 mg Capsule,Extended Release 24hr
180 mg PO DAILY Qty: 0 0RF
bisacodyl 5 mg Tablet,Delayed Release (Dr/Ec)
10 mg PO DAILYPRN PRN (Reason: constipation) Qty: 0 0RF
Continued
ascorbic acid (vitamin C) [Vitamin C] 500 MG tablet
500 mg PO QPM
Movantik 25 MG tablet
25 mg PO DAILY
primidone 50 MG tablet
25 mg PO HS
mirtazapine 30 MG tablet
30 mg PO HS
Eliquis 2.5 MG tablet
2.5 mg PO BID
bupropion HCl 100 mg Tablet Sustained-Release 12 Hr
100 mg PO DAILY
escitalopram oxalate 20 mg Tablet
20 mg PO DAILY
Patient Comments:
04/21/2023, pt. unsure if this is morning or evening med.
cholecalciferol (vitamin D3) 125 mcg (5,000 unit) Tablet
125 mcg PO QPM
Unknown Vitamins
1 tab PO QPM
Patient Comments:
04/21/2023, pt. states to be taking vitamins but does not know the names of them at this time. Per pt., she takes one tablet of each QPM.
gabapentin 300 MG capsule
600 mg PO HS
oxycodone-acetaminophen 10-325 mg Tablet
1 tab PO Q4H PRN (Reason: severe pain) Qty: 12 0RF
Changed
lisinopril 40 mg Tablet
20 mg PO DAILY Qty: 0 0RF
Discontinued
hydrochlorothiazide 50 mg Tablet
50 mg PO DAILY
Patient Comments:
04/21/2023, last filled on 12/09/2022 for 90-day supply.
amlodipine 10 mg Tablet
10 mg PO HS
Discharge Orders:
Discharge Patient (As Directed); Ordered 04/25/23
Ordered By: Favian Clark
Discharge Date and Time
Discharge Date/Time: 04/25/23 19:55
[2023-04-25] MEDS: FLUZONE HIGH-DOSE QUAD 2023-24 0.699999999999999956 ML IM (14:43)
[2023-04-25 15:00] VITALS: BP 115/73; PULSE 85
[2023-04-25 15:04] VITALS: BP 115/73
--- NOTE | 2023-04-25 16:32 | PTCARENOTE ---
Pt AAO x3; sl forgetful at times; pleasant and cooperative. CHE; OOB to chair with assist x1/walker, legs weak. VSS. Telemetry:A fib to 140's with activity, pt denies CP/palpitations. On room air- pulse ox 98%, no c/o SOB. Abd soft, rounded,
lukas reg diet, appetite fair, no BM so far this shift. Incont urine; Purewick cath in place. Resting in chair at present, no c/o; anticipating D/C to SNF. Will continue to monitor.
[2023-04-25] MEDS: VITAMIN D3 (cholecalciferol) 125 MCG PO (18:02)
[2023-04-25] MEDS: VITAMIN C 500 MG PO (18:02)
--- NOTE | 2023-04-26 10:13 | CM ---
(late entry for 04/25/23)
CM following re: d/c planning
Chart reviewed
Pt is medically stable for d/c
Several referrals placed in order of preference via care port by previous CM
CM spoke with Glory in admissions at [facility] who did confirm bed availability
CM called and spoke with the patient's niece and she was happy to hear of bed availability at [facility]
IMM reviewed & copy provided
LOMN & inhouse transport form completed and transport confirmed for 6p
No additional d/c needs to note
PLAN; d/c to [facility]
Report: [phone]
== END 2023-04-25 19:55 | DRG 445 ==
LOC: 4 EAST ACU 18:29
PROVIDERS: ADMITTING PHYSICIAN Internal Medicine; ATTENDING PHYSICIAN Internal Medicine; CONSULT PHYSICIAN Internal Medicine Cardiovascular Disease; CONSULT PHYSICIAN Internal Medicine Gastroenterology; EMERGENCY PHYSICIAN Emergency Medicine; FAMILY PHYSICIAN Family Medicine
DX: K83.8 Other specified diseases of biliary tract (principal); I48.21 Permanent atrial fibrillation; E87.6 Hypokalemia; I12.9 Hypertensive chronic kidney disease with stage 1 through stage 4 chronic kidney disease, or unspecified chronic kidney disease; N18.30 Chronic kidney disease, stage 3 unspecified; G89.29 Other chronic pain; E86.0 Dehydration; R53.1 Weakness; T40.715A Adverse effect of cannabis, initial encounter; Z79.01 Long term (current) use of anticoagulants
CPT/HCPCS: 51701; 76700; 80053; 80306; 80307; 81003; 81015; 83690; 84484; 85025; 85027; 87502; 87811; 90662; 93005; 96361; 96374; 97116; 97166; 99285; G0008

== ENCOUNTER → 2023-06-20 16:01 | Outpatient (REF) | payer MEDICARE, OTHER, SELFPAY | LOC: HWRCS 16:01 | PROVIDERS: ATTENDING PHYSICIAN Physician Assistant; FAMILY PHYSICIAN Family Medicine | DX: I48.91 Unspecified atrial fibrillation (principal); I10 Essential (primary) hypertension; I34.0 Nonrheumatic mitral (valve) insufficiency | CPT/HCPCS: 93306 ==

== ENCOUNTER 2024-02-06 11:35 | Inpatient (IN) | payer MEDICARE, OTHER, SELFPAY ==
[2024-02-04] VITALS (8 sets, daily range): BP systolic 114–156; BP diastolic 79–98; BMI 19.4
[2024-02-04 16:32] LABS: % Basophils 0.8 % (0-2); % Eosinophils 2.8 % (0-6); % Immature Granulocytes 0.4 % (0-0.5); % Lymphocytes 23.3 % (20.5-51.1); % Monocytes 5.1 % (1.7-9.3); % Neutrophils 67.6 % (42.2-75.2); Absolute Basophils 0.1 10^3/uL (0-0.2); Absolute Eosinophils 0.2 10^3/uL (0-0.7); Absolute Lymphocytes 1.8 10^3/uL (1.2-3.4); Absolute Monocytes 0.4 10^3/uL (0.1-0.6); Absolute Neutrophils 5.3 10^3/uL (1.4-6.5); Hematocrit 34.6 % (37.0-47.0); Hemoglobin 11.6 g/dL (12.0-16.0); Mean Corp Hgb Conc. 33.5 g/dL (33.0-37.0); Mean Corpuscular Hgb 30.2 pg (27.0-31.0); Mean Corpuscular Volume 90.1 fL (81.0-99.0); Mean Platelet Volume 9.4 fL (7.4-10.4); Nucleated Red Blood Cells % 0 %; Platelet Count 204 10^3/uL (130-400); Red Blood Cell Count 3.84 10^6/uL (4.20-5.40); Red Cell Dist. Width 14.2 % (11.5-14.5); White Blood Cell Count 7.9 10^3/uL (4.8-10.8)
--- NOTE | 2024-02-04 16:38 | ED.GENMED ---
History of Present Illness
General
Chief Complaint: Fall
Source: patient
Exam Limitations: none
Time Seen by Provider: 02/04/24 16:22
Nursing documentation reviewed up to this point in time: agreed with
History of Present Illness
History of Present Illness:
88 y/o female with past medical history of A-fib on Eliquis, hypertension, hyperlipidemia, chronic kidney disease presents emergency department today with concerns of right elbow pain right hip pain following a fall. Patient states that in the
middle of the night, she was leaving the bathroom to go back into bed when she lost her footing and fell onto her right side. She was unable to get up off the floor, she woke up her who helped her get back into bed. Patient states that
when she woke up, she was not able to bear weight on the right side at all and has severe pain. Patient states that she did hit her head when she fell. She denies any neck pain. She denies any syncopal episodes, any dizziness, any lightheadedness
or loss,. Patient Nuys any shortness of breath or chest pain. Patient notes mild pain in her groin as well. Patient denies any numbness or tingling in her lower extremities
Past History
Past History
ED Past Medical History: Arrthythmia (Atrial fibrillation), COPD, HTN and Other (sciatica)
ED Past Surgical History: Orthopedic
Social History
Tobacco: Smoker (smokes E-cigarettes.Stopped smoking regular cigarettes)
Alcohol: Occasional
Drug: None
Personal:
Living: with family
Review of Systems
Review of Systems
All Other Systems: ROS reviewed and negative except as documented in HPI and ROS
Phy Exam
Physical Exam
Physical Exam:
General: Patient is well appearing and in no acute distress; non-toxic
Skin: Warm and dry, no rashes or lesions
Head: Normocephalic, atraumatic
Eyes: Sclera non-icteric. EOMs intact.
Neck: No midline cervical spine tenderness
Cardiac: Regular rate
Peripheral Vascular: No lower extremity swelling or edema, 2+ dorsalis pedis and posterior tibial pulses bilaterally
Pulm: Normal respiratory effort, no wheezing
Abdomen: No abdominal tenderness to palpation
Musculoskeletal: No palpable deformities of the right lower extremity, right hip pain noted with external rotation of the hip. Swelling noted to the right elbow, no palpable bony deformities.
Neuro: CN II-XII intact, no focal neurologic deficits.
Psychiatric: Appropriate mood and affect.
Course
Orders/Labs/Results
Orders:
Orders
02/04/24 Breakfast
Cholesterol Lowering
At Your Request: Full Participation
Cholesterol Lowering: Sodium, 2 Gram
02/04/24 16:16
Complete Blood Count/With Diff Urgent
Comprehensive Metabolic Panel Urgent
02/04/24 16:45
CT Cervical Spine W/o Iv Contr Urgent
Comment:
Reason For Exam: right sided head strike
CR Elbow - Right Min 2 View Urgent
Comment:
Reason For Exam: right elbow pain, swelling
CR Hip - RT w/wo Pel 2-3 Vw* Urgent
Comment:
Reason For Exam: right hip pain fall
Include a pelvis x-ray?: Yes
02/04/24 16:46
CT Head W/o Iv Contrast Urgent
Comment:
Reason For Exam: right head stroke eliquis
02/04/24 16:50
Morphine Sulfate 2 mg IV NOW STA
02/04/24 19:12
Morphine Sulfate 2 mg IV NOW STA
02/04/24 20:47
CT Pelvis W/o Iv Contrast Urgent
Comment:
Reason For Exam: right hip pain, unable to bear weight
02/04/24 21:49
Admit/Transfer Patient As Directed
Co-Sign Provider:
Level of Care: Observation services
Assign to:: Medical/Surgical
Physician / Group: [email or web address]
Diagnosis: Acute ambulatory dysfunction s/p uncomplicated Fall
02/04/24 21:50
Code Status As Directed
Resuscitation Status: Full Code
02/04/24 22:00
Flush (0.9% Sodium Chloride) [Flush (Nss)] See Dose Instructions IV PER PROTOCOL
02/04/24 22:29
0.9% Sodium Chloride 1000 ml [Nss] 1,000 ml IV 60 mls/hr
Acetaminophen [Tylenol] 650 mg PO Q4HPRN PRN
Bisacodyl [Dulcolax] 10 mg RECTAL [id number] PRN
Docusate W/Senna [Senokot-S] 1 tablet PO BIDPRN PRN
Gabapentin [Neurontin] 600 mg PO HS
Ketorolac [Toradol] 10 mg IV Q6HPRN PRN
Mirtazapine [Remeron] 30 mg PO HS
Oxycodone [Roxicodone] 1 mg PO Q4H PRN
Polyethylene Glycol Powder [Miralax] 17 grams PO DAILYPRN PRN
Primidone [Mysoline] 25 mg PO HS
02/04/24 22:29
Case Management Consult ONCE
Case Management Consult: Discharge Planning
Activity As Directed
Activity Level: With Assistance
Vital Signs As Directed
Frequency: Per unit guidelines
Ot Eval And Treat Routine
Pt Eval And Treat Routine
Activity Level: With Assistance
02/05/24 06:00
Basic Metabolic Panel IN AM
Complete Blood Count/No Diff IN AM
Urinalysis Reflex To Culture IN AM
02/05/24 08:00
Apixaban [Eliquis] 2.5 mg PO BID
Diltiazem Extended Release [Cardizem Cd] 180 mg PO DAILY
Escitalopram Oxalate [Lexapro] 20 mg PO DAILY
Lisinopril [Zestril] 20 mg PO DAILY
Abnormal Lab Results
02/04/24
16:16
RBC 3.84 L 10^6/uL
(4.20-5.40)
Hgb 11.6 L g/dL
(12.0-16.0)
Hct 34.6 L %
(37.0-47.0)
BUN 21 H mg/dl
(7-17)
Creatinine 1.1 H mg/dL
(0.6-1.0)
AST 41 H U/L
(14-36)
02/04/24 16:16
02/04/24 16:16
Vital Signs
Initial and Last Documented VS:
Initial Vital Signs
Temp Pulse Resp BP Pulse Ox
98.1 F 108 16 152/90 96
02/04/24 16:09 02/04/24 16:09 02/04/24 16:09 02/04/24 16:09 02/04/24 16:09
Last Documented Vital Signs
Temp Pulse Resp BP Pulse Ox
98.1 F 118 16 156/98 95
02/04/24 22:45 02/04/24 22:45 02/04/24 22:45 02/04/24 22:45 02/04/24 22:45
MDM/Problems Addressed
Differential Diagnosis Includes:
see below
MDM/Problems Addressed:
NUMBER AND COMPLEXITY OF PROBLEMS ADDRESSED AT THE ENCOUNTER
� Chronic conditions affecting care: A-fib on Eliquis, hypertension, hyperlipidemia, chronic
� Differential Diagnosis includes: pelvic fracture, hip fracture, ulnar fracture, contusion, strain, subdural hematoma, subarachnoid hemorrhage
AMOUNT AND/OR COMPLEXITY OF DATA TO BE REVIEWED AND ANALYZED
� I performed an independent evaluation of and my interpretation is:
X-ray negative for for fracture or acute dislocation
Laboratory Studies: CBC C unremarkable, CMP shows baseline renal function
Other:
� Review of other/old records: Reviewed discharge summary from 04/25/23, patient hospitalized for mildly elevated LFTs and generalized weakness
� Clinical information was obtained by an independent historian:
� Prescriptions/Medications Considered but not given: patient referred for admission
� Further testing considered but not performed: none
RISK OF COMPLICATIONS AND/OR MORBIDITY OR MORTALITY OF PATIENT MANAGEMENT
� Social determinants of health affecting care: none
� Discussion with other providers: ER attending
� Escalation of care including admission/observation vs risk of discharge considered:
88-year-old female presents emergency department with right hip pain and right elbow pain following a fall. Initial x-ray negative for fracture. Patient unable to bear weight. Patient sent for CT scan which relieves proximal femur fracture.
Orthopedics consulted.
*Critical Care Note
Total Time (30-74mins, 75-104mins- exclusive of procedures): Not Applicable
Update Note
Update Note:
After admission for ambulatory dysfunction, did see that CAT scan did show a femoral fracture. Did consult orthopedics, patient is admitted to the hospitalist.
ED Attending Note
-
Portions of this chart may have been created with voice recognition software.� Occasional wrong word or��sound alike� substitutions may have occurred due to the inherent limitations of voice recognition software.
Discharge Plan
Departure
Patient Disposition: Admit
Date of Disposition: 02/04/24
Time of Disposition: 20:55
Admit to: Med/Surg
Presentation/result/management discussed w/ accepting MD/DO: Hospitalist
Condition: Fair
Discharge Problem:
Ambulatory dysfunction, Hip pain
Interventions
Interventions:
*Risk Screen - Suicide Last Done: 02/04/24 23:59
*General Assessment Last Done: 02/04/24 16:09
*Neglect/Abuse Screening Last Done: 02/04/24 16:09
*ED COVID-19 Vaccine History Last Done: 02/04/24 16:09
*Nursing Disposition Last Done: 02/04/24 22:34
ED-Musculoskeletal Assessment Last Done: 02/04/24 16:16
ED- Neurological Assessment Last Done: 02/04/24 16:16
ED-Skin Assessment Last Done: 02/04/24 16:16
Discharge Date and Time
Discharge Date/Time: 02/04/24 22:35
[2024-02-04] MEDS: MORPHINE SULFATE 2 MG IV ×2 (16:53→19:17)
[2024-02-04 16:55] LABS: ALT (SGPT) 20 U/L (0-35); AST (SGOT) 41 U/L (14-36); Albumin 4.1 g/dl (3.5-5.0); Alkaline Phosphatase 42 U/L (38-126); Blood Urea Nitrogen 21 mg/dl (7-17); Calcium 9.3 mg/dl (8.4-10.2); Carbon Dioxide 26 mmol/L (22-30); Chloride 101 mmol/L (98-107); Estimated Creatinine Clearance 26 ml/min; Glucose 89 mg/dl (70-99); Potassium 4.8 mmol/L (3.5-5.1); Sodium 136 mmol/L (135-145); Total Bilirubin 0.7 mg/dl (0.2-1.3); Total Protein 6.7 g/dl (6.3-8.2); eGFR 48.33
--- NOTE | 2024-02-04 21:44 | HPS.HSE ---
Addendum entered and electronically signed by Jj Campbell MD 02/04/24 23:01:
Addendum:
Cognitively intact patient
Rt Hip CT scan demonstrates fracture of proximal femoral metaphysis (initial x-ray negative)
Last dose of Eliquis today around 8am
HX Stable CKD3
RCRI index Zero = risk of major cardiac event is 3.9 percent
Medically acceptable for OR , risk outweigh the benefits. .
Case dw Ortho Dr Rose
- No plans for OR tomorrow.
- Will evaluate in am for revision or what not
Original Note:
Family Physician
-
Family Physician: Derrick Olmstead
Chief Complaint
-
Fall, Rt Hip pain, Rt Elbow pain
History of Present Illness
HPI
88F from Home with HX chr kervin on A Fib, remote HX Rt [facility] seen at ER
- s/p Fall last night
- reports hit head
- reports Rt Hip pain, Rt elbow pain
She cannot bear weight at all and has severe pain since the injury, s
NEG Fx on both Rt Hip and Rt Elbow XR
NEG HCT for acute pathology
NEG CX CT spine
Medical History
Past Medical History
Past Medical History: Reports Arrhythmia (Atrial fibrillation), HTN and Renal Failure (Chronic kidney disease stage III)
Past Surgical History: Reports Orthopedic (Bilateral knee replacements)
Social History
Tobacco: Non-smoker
Alcohol: None
Drug: None
Family History
Family History: Not pertinent
Allergies / Home Medications
Allergies reflects when Allergies were last updated in [employer].
Home Medications with original date entered in [employer]
Allergy/Medication List:
Allergies
Allergy/AdvReac Type Severity Reaction Status Date / Time
carbetapentane Allergy Unknown Verified 06/07/21 01:35
[From Gentex 30]
guaifenesin [From Gentex 30] Allergy Unknown Verified 06/07/21 01:35
phenylephrine Allergy Unknown Verified 06/07/21 01:35
[From Gentex 30]
Home Medications
ascorbic acid (vitamin C) 500 mg tablet (Vitamin C) 500 mg PO QPM 04/16/15
naloxegol 25 mg tablet (Movantik) 25 mg PO DAILY 04/16/15
apixaban 2.5 mg tablet (Eliquis) 2.5 mg PO BID 06/07/21
mirtazapine 30 mg tablet 30 mg PO HS 06/07/21
primidone 50 mg tablet 25 mg PO HS 06/07/21
Unknown Vitamins 1 tab PO QPM 04/21/23
amlodipine 10 mg tablet 10 mg PO HS 04/21/23
bupropion HCl 100 mg tablet,12 hr sustained-release 100 mg PO DAILY 04/21/23
cholecalciferol (vitamin D3) 125 mcg (5,000 unit) tablet 125 mcg PO QPM 04/21/23
escitalopram oxalate 20 mg tablet 20 mg PO DAILY 04/21/23
gabapentin 300 mg capsule 600 mg PO HS 04/21/23
hydrochlorothiazide 50 mg tablet 50 mg PO DAILY 04/21/23
lisinopril 40 mg tablet 40 mg PO DAILY 04/21/23
oxycodone-acetaminophen 10 mg-325 mg tablet 1 tab PO Q4H PRN severe pain 04/21/23
Review of Systems
-
Constitutional: Reports No Symptoms
EENT: Reports No Symptoms
Respiratory: Reports No Symptoms
Cardiac: Reports No Symptoms
Abdomen/GI: Reports No Symptoms
: Reports No Symptoms
Musculoskeletal: Reports See HPI
Skin: Reports No Symptoms
Neurological: Reports No Symptoms
Endocrine: Reports No Symptoms
Hematologic/Lymphatic: Reports No Symptoms
Psych: Reports No Symptoms
Physical Exam
Vital Signs
Vital Signs
Temp Pulse Resp BP Pulse Ox
98.1 F 105 13 114/79 94
02/04/24 16:09 02/04/24 20:45 02/04/24 20:45 02/04/24 20:00 02/04/24 20:45
Physical Exam
General: Well Developed, Well Nourished and No Apparent Distress
HEENT: NormoCephalic, Moist mucous membranes and Atraumatic
Respiratory: Clear
Cardiac: S1/S2 and Regular Rhythm; No Murmur or Rub
GI: Soft, Non Tender, Non Distended and Normal Bowel Sounds; No Organomegaly
Rectal: Deferred by Provider
Musculoskeletal: No Clubbing, No Cyanosis and No Edema
Skin: No Rash
Neuro: Nonfocal/grossly intact
Laboratory Results
-
02/04/24 16:16
02/04/24 16:16
Laboratory Results
Total Bilirubin 0.7 mg/dl (0.2-1.3) 02/04/24 16:16
AST 41 U/L (14-36) H 02/04/24 16:16
ALT 20 U/L (0-35) 02/04/24 16:16
Alkaline Phosphatase 42 U/L (38-126) 02/04/24 16:16
Data Reviewed
-
Diagnostic Radiology: Report Reviewed by me
CT Scan: Report Reviewed by me
Lab Data: Labs Reviewed by me
Old Records: Reviewed
Impression/Plan
-
Vital Signs
Temp Pulse Resp BP Pulse Ox
98.1 F 105 13 114/79 94
02/04/24 16:09 02/04/24 20:45 02/04/24 20:45 02/04/24 20:00 02/04/24 20:45
Laboratory Tests
04/25/23 02/04/24
07:36 16:16
Hgb 12.0 11.6 L
Creatinine 1.0 1.1 H
eGFR 54.53 48.33
Rt Hip XR
No acute abnormalities
Right hip replacement
Lumbar degenerative disc disease
Old healed fractures of the ischial tuberosities bilaterally
Rt Elbow XR
Osteopenia/osteoporosis without associated fracture
CX spine CT
No acute abnormalities
Multilevel cervical degenerative disc disease and degenerative facet joint disease
HCT
There are no acute intracranial abnormalities.
There is mild diffuse cortical atrophy with mild nonspecific white matter changes as described above.
Last hospitalist admission: Date of Admission: 04/21/23 - Date of Discharge: 04/25/23
DC DXs
Permanent AF
Borderline dilation of intrahepatic ducts
Essential HTN
Hypokalemia
ASSESSMENT & PLAN
Pending Rx reconciliation
Acute ambulatory dysfunction s/p Fall at [facility] due to pain despite IV Morphine 2 mg times [address] Cx spine evidence of bone Fx
NEG HCT for acute pathology
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
- Fall precaution
- PRN Pain control
- PT/OT/CRM consult
Permanent AF
- Continue with Eliquis
- Not on any rate control medication.
CKD3
- At baseline Cr low 1s , eGFR mid 50 s at baseline
- stable
Benign HTN
- resume all OP anti HTN Meds s/p Rx reconciliation
DVT Px: SCD
Ful code
Obs MS
[2024-02-05] MEDS: MYSOLINE 25 MG PO ×2 (00:41→21:51)
[2024-02-05] MEDS: NEURONTIN 600 MG PO ×2 (00:41→21:51)
[2024-02-05] MEDS: REMERON 30 MG PO ×2 (00:44→21:51)
[2024-02-05] MEDS: NSS 1000 IV ×2 (00:45→21:49)
[2024-02-05] MEDS: TORADOL 10 MG IV ×2 (01:15→12:48)
--- NOTE | 2024-02-05 04:17 | W.PN.UPDATE ---
Update Note
Progress Note Update
pt with proximal femur fx
last eliquis 02/04 800.
will hold pending ortho eval and need for poss OR
--- NOTE | 2024-02-05 06:24 | PTCARENOTE ---
Pt arrived from ED via stretcher. Admitted with r hip fracture. Slid over from stretcher to bed. Pain in lower back acute on chronic 08/22, l hip 04/22 with repositioning. R hip 05/23 pain. Pain meds given for reported pain level. Lungs clear 95% on
RA. Abd + bowel sounds. Cachectic. Skin clean, dry, intact other than r elbow bruise edematous. Ivf running 60ml/hr. Call broderick within reach. Will continue to monitor.
[2024-02-05 07:00] VITALS: BP 154/86
[2024-02-05 07:03] LABS: Hematocrit 31.1 % (37.0-47.0); Hemoglobin 10.4 g/dL (12.0-16.0); Mean Corp Hgb Conc. 33.4 g/dL (33.0-37.0); Mean Corpuscular Hgb 30.2 pg (27.0-31.0); Mean Corpuscular Volume 90.4 fL (81.0-99.0); Mean Platelet Volume 10.3 fL (7.4-10.4); Platelet Count 196 10^3/uL (130-400); Red Blood Cell Count 3.44 10^6/uL (4.20-5.40); Red Cell Dist. Width 14.3 % (11.5-14.5)
--- NOTE | 2024-02-05 07:17 | W.PN.UPDATE ---
Update Note
Progress Note Update
Patient seen and evaluated this morning. Imaging reviewed.
Patient with essentially nondisplaced periprosthetic right proximal femur fracture. No evidence of subsidence when compared to previous radiographs. I will discuss with patients surgeon of record. Please keep patient nonweightbearing for the time
being. Please hold anticoagulation for now.
Formal consult to follow
[2024-02-05 07:24] LABS: Blood Urea Nitrogen 24 mg/dl (7-17); Calcium 8.7 mg/dl (8.4-10.2); Carbon Dioxide 29 mmol/L (22-30); Chloride 103 mmol/L (98-107); Estimated Creatinine Clearance 24 ml/min; Glucose 73 mg/dl (70-99); Potassium 4.4 mmol/L (3.5-5.1); Sodium 138 mmol/L (135-145); eGFR 43.54
[2024-02-05] MEDS: CARDIZEM CD 180 MG PO (08:54)
[2024-02-05] MEDS: LEXAPRO 20 MG PO (08:55)
[2024-02-05] MEDS: ZESTRIL 20 MG PO (08:55)
[2024-02-05 11:00] VITALS: BP 130/80; PULSE 98
[2024-02-05 11:02] VITALS: BP 130/80; PULSE 98
--- NOTE | 2024-02-05 12:05 | CM ---
Met with pt and her niece at bedside
Pt lives with her in a multistory home; 2 steps to enter, 8 steps to bedroom/bath
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
DME - rolling walker, single point cane, shower chair, commode, wheel chair
SNF - [facility] in past
HH - [facility] in past
PCP - Derrick Olmstead
Pharm - [facility]
Discussed TRAN
PT/OT - recs SNF. Prefers the [facility]
May require surgical intervention - Eliquis on hold
[facility]
Plan - TBD based on medical plan. CM will follow
[2024-02-05] MEDS: TYLENOL 650 MG PO (12:47)
--- NOTE | 2024-02-05 13:29 | W.PN.HOSP.TC ---
Today's Communication/Plan
-
Await orthopedics input
Assessment / Plan
Assessment / Plan
Gen-AAOx3, NAD
HEENT-NC, AT, anicteric, clear oral mm
Neck-supple
CV-reg, no M, +S1/S2
Lungs-clear B/L
Abd-soft, NT, ND
Ext-no edema
Musculoskeletal-no cyanosis, clubbing
Skin-warm and dry
Neuro-grossly non-focal
Psych-calm, cooperative
Acute traumatic right hip periprosthetic fracture -nondisplaced. Appreciate orthopedics input, they will discuss with the patient's primary surgeon Dr. Willams. Nonweightbearing right lower extremity for now. Hold anticoagulation.
Permanent atrial fibrillation - Hold Eliquis as above.
Essential hypertension -stable.
Normocytic anemia -hemoglobin 10.4, monitor for now.
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 Baseline unknown. Hold further NSAIDs.
Full code
Anticipated Discharge: > 48 hours
Subjective/Interval History
-
Date of Service: February 05, 2024
Patient seen and examined. Complaining of some right hip pain.
Objective Data
-
Labs:
Laboratory Results
02/05/24
06:03
WBC 6.0
Hgb 10.4 L
Hct 31.1 L
Plt Count 196
Sodium 138
Potassium 4.4
Chloride 103
Carbon Dioxide 29
BUN 24 H
Creatinine 1.2 H
Glucose 73
Calcium 8.7
Vital Signs:
Vital Signs
Temp Pulse Resp BP Pulse Ox
97.9 F 88 18 154/86 96
02/05/24 07:00 02/05/24 07:00 02/05/24 07:00 02/05/24 07:00 02/05/24 07:00
Review of Systems
-
History Source: Patient
All other systems: Reviewed and negative
[2024-02-05] MEDS: ROXICODONE 5 MG PO ×2 (14:31→21:50)
[2024-02-05 15:00] VITALS: BP 138/80
--- NOTE | 2024-02-05 20:03 | CON.ORTHO ---
Consultation - Orthopedics
History
HPI: 88-year-old female community ambulator presented to the emergency department status post fall at home with complaints of right hip pain. Subsequent imaging diagnosed patient with essentially nondisplaced periprosthetic right femur fracture.
She was admitted to the hospital service and orthopedics was consulted. This morning patient reports that she has remote history of right total hip arthroplasty with Dr. Kaushal Willams. 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 She reports that she had a mechanical fall and since that time has been complaining of right hip and groin pain. Pain is made worse by palpation affected area with attempted ambulation.
Allergies / Home Medications
Past medical history: A-fib on anticoagulation, hypertension, chronic kidney disease stage III
Past surgical history: Total knee arthroplasty, total hip arthroplasty
Family history: Not pertinent
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
Allergy/AdvReac Type Severity Reaction Status Date / Time
carbetapentane Allergy Unknown Verified 06/07/21 01:35
[From Gentex 30]
guaifenesin [From Gentex 30] Allergy Unknown Verified 06/07/21 01:35
phenylephrine Allergy Unknown Verified 06/07/21 01:35
[From Gentex 30]
�Medication �Instructions �Recorded
ascorbic acid (vitamin C) 500 mg 500 mg PO QPM 04/16/15
tablet (Vitamin C)
naloxegol 25 mg tablet (Movantik) 25 mg PO DAILY 04/16/15
apixaban 2.5 mg tablet (Eliquis) 2.5 mg PO BID 06/07/21
mirtazapine 30 mg tablet 30 mg PO HS 06/07/21
primidone 50 mg tablet 25 mg PO HS 06/07/21
Unknown Vitamins 1 tab PO QPM 04/21/23
bupropion HCl 100 mg tablet,12 hr 100 mg PO DAILY 04/21/23
sustained-release
cholecalciferol (vitamin D3) 125 125 mcg PO QPM 04/21/23
mcg (5,000 unit) tablet
escitalopram oxalate 20 mg tablet 20 mg PO DAILY 04/21/23
gabapentin 300 mg capsule 600 mg PO HS 04/21/23
bisacodyl 5 mg tablet,delayed 10 mg (2 x 5 mg) PO DAILYPRN PRN 04/25/23
release constipation #0 tabs
diltiazem HCl 180 mg 180 mg PO DAILY #0 caps 04/25/23
capsule,extended release 24 hr
lisinopril 40 mg tablet 20 mg (1/2 x 40 mg) PO DAILY #0 04/25/23
tabs
oxycodone-acetaminophen 10 mg-325 1 tab PO Q4H PRN severe pain #12 04/25/23
mg tablet tabs
Vital Signs / Lab Results
Temp Pulse Resp BP Pulse Ox
98.0 F 96 18 138/80 96
02/05/24 15:00 02/05/24 15:00 02/05/24 15:00 02/05/24 15:00 02/05/24 15:00
02/05/24 06:03
02/05/24 06:03
10 point review systems reviewed and negative unless otherwise stated
General: Pleasant, no acute distress at rest supine in bed
Musculoskeletal right lower extremity
Skin intact, no erythema or ecchymotic staining
Leg lengths approximately equal
Pain with logroll
There is tenderness palpation over groin and lateral trochanteric flare
There is pain with passive range of motion of right hip
No palpable ipsilateral knee effusion
Positive EHL, FHL, ankle dorsiflexion, plantarflexion
Brisk cap refill distally
No areas of bony tenderness palpation crepitation long bones or joints tertiary exam
Diagnostic studies
X-rays right hip CT scan independently viewed by myself. Radiology report was reviewed. There is evidence of essentially nondisplaced periprosthetic proximal femur fracture. Is predominantly greater trochanteric fracture with some extension
medially into the lesser trochanter. No significant distal extension. Radiographs previously obtained several years ago in the emergency department were also reviewed and when compared to radiographs taken during this hospitalization, there is
been no gross subsidence of the stem.
Assessment / Plan
88-year-old female history of A-fib on anticoagulation status post fall with minimally displaced greater trochanteric/lesser trochanteric periprosthetic femur fracture. I had a long detail discussion the patient regarding diagnosis and treatment
options. I did reach out to her surgeon of record Dr. Arteaga reviewed imaging with him. Given the fracture pattern and minimal displaced nature with no evidence of subsidence or gross instability of stem, would recommend protected weightbearing.
Patient can bear weight with a walker. She can ambulate with physical therapy. Recommend DVT prophylaxis per primary team. Recommend pain control. Can follow-up on an outpatient basis in [address] Prabha GARCIA for repeat evaluation repeat
radiographs to assess for any interval displacement or stem subsidence. No acute orthopedic intervention planned
Weightbearing as tolerated right lower extremity with walker
PT OT
Pain control
DVT prophylaxis
Follow-up 2 weeks outpatient
No acute orthopedic intervention
Please reach out with questions or concerns
[2024-02-05 23:35] VITALS: BP 141/95
[2024-02-06 07:00] VITALS: BP 147/83
[2024-02-06 07:06] LABS: Blood Urea Nitrogen 28 mg/dl (7-17); Calcium 8.2 mg/dl (8.4-10.2); Carbon Dioxide 27 mmol/L (22-30); Chloride 103 mmol/L (98-107); Estimated Creatinine Clearance 26 ml/min; Glucose 92 mg/dl (70-99); Potassium 4.4 mmol/L (3.5-5.1); Sodium 135 mmol/L (135-145); eGFR 48.33
[2024-02-06] MEDS: LEXAPRO 20 MG PO (10:04)
[2024-02-06] MEDS: CARDIZEM CD 180 MG PO (10:04)
[2024-02-06] MEDS: ZESTRIL 20 MG PO (10:04)
[2024-02-06] MEDS: SENOKOT-S 1 TABLET PO (11:45)
--- NOTE | 2024-02-06 12:12 | W.PN.HOSP.TC ---
Today's Communication/Plan
-
Resume Eliquis
Resume home meds
Discharge planning
Assessment / Plan
Assessment / Plan
Gen-AAOx3, NAD
HEENT-NC, AT, anicteric, clear oral mm
Neck-supple
CV-reg, no M, +S1/S2
Lungs-clear B/L
Abd-soft, NT, ND
Ext-no edema
Musculoskeletal-no cyanosis, clubbing
Skin-warm and dry
Neuro-grossly non-focal
Psych-calm, cooperative
Acute traumatic right hip periprosthetic fracture -nondisplaced. Orthopedics recommends nonoperative intervention. Resume Eliquis. Outpatient follow-up.
Permanent atrial fibrillation -resume Eliquis.
Essential hypertension -stable.
Normocytic anemia -hemoglobin 10.4, monitor for now.
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 Baseline unknown. Hold further NSAIDs.
Full code
Dispo -stable for discharge to SNF. Case management aware.
Anticipated Discharge: Within 24 hours
Subjective/Interval History
-
Date of Service: February 06, 2024
Patient seen and examined. No complaints.
Objective Data
-
Labs:
Laboratory Results
02/06/24
05:40
Sodium 135
Potassium 4.4
Chloride 103
Carbon Dioxide 27
BUN 28 H
Creatinine 1.1 H
Glucose 92
Calcium 8.2 L
Vital Signs:
Vital Signs
Temp Pulse Resp BP Pulse Ox
98.2 F 90 18 167/100 95
02/06/24 07:00 02/06/24 10:04 02/06/24 07:00 02/06/24 10:04 02/06/24 07:00
I&O
02/05/24 02/06/24 02/07/24
06:59 06:59 06:59
Intake Total 1679
Balance 1679
Review of Systems
-
History Source: Patient
All other systems: Reviewed and negative
[2024-02-06 12:40] VITALS: BP 144/88; PULSE 97; O2SAT 95
[2024-02-06 12:41] VITALS: BP 144/88; PULSE 86; O2SAT 93
[2024-02-06 15:00] VITALS: BP 140/97
[2024-02-06] MEDS: NON-FORMULARY ITEM 1 UNIT PO (16:18)
[2024-02-06] MEDS: WELLBUTRIN SR (12 hour sustained release) 100 MG PO (16:18)
[2024-02-06] MEDS: VITAMIN D3 (cholecalciferol) 125 MCG PO (17:50)
[2024-02-06] MEDS: VITAMIN C 500 MG PO (17:50)
[2024-02-06] MEDS: ELIQUIS 2.5 MG PO (20:50)
[2024-02-06] MEDS: INDERAL 20 MG PO (20:50)
[2024-02-06] MEDS: MYSOLINE 25 MG PO (22:29)
[2024-02-06] MEDS: XANAX 0.5 MG PO (22:30)
[2024-02-06] MEDS: NEURONTIN 600 MG PO (22:30)
[2024-02-06] MEDS: REMERON 30 MG PO (22:33)
[2024-02-06 23:40] VITALS: BP 137/90
[2024-02-07] MEDS: ROXICODONE 5 MG PO ×2 (06:46→13:29)
[2024-02-07 07:15] VITALS: BP 129/84
[2024-02-07] MEDS: LEXAPRO 20 MG PO (08:42)
[2024-02-07] MEDS: CARDIZEM CD 180 MG PO (08:42)
[2024-02-07] MEDS: INDERAL 20 MG PO (08:43)
[2024-02-07] MEDS: ZESTRIL 20 MG PO (08:43)
[2024-02-07] MEDS: WELLBUTRIN SR (12 hour sustained release) 100 MG PO (08:43)
[2024-02-07] MEDS: ELIQUIS 2.5 MG PO (08:43)
--- NOTE | 2024-02-07 12:21 | W.PN.HOSP.TC ---
Today's Communication/Plan
-
Continue current care
Assessment / Plan
Assessment / Plan
Gen-AAOx3, NAD
HEENT-NC, AT, anicteric, clear oral mm
Neck-supple
CV-reg, no M, +S1/S2
Lungs-clear B/L
Abd-soft, NT, ND
Ext-no edema
Musculoskeletal-no cyanosis, clubbing
Skin-warm and dry
Neuro-grossly non-focal
Psych-calm, cooperative
Acute traumatic right hip periprosthetic fracture -nondisplaced. Orthopedics recommends nonoperative intervention. Outpatient follow-up.
Permanent atrial fibrillation -continue Eliquis.
Essential hypertension -stable.
Normocytic anemia -hemoglobin 10.4, monitor for now.
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 Baseline unknown. Hold further NSAIDs.
Full code
Dispo -stable for discharge to SNF. Case management aware.
Anticipated Discharge: 24 - 48 hours
Subjective/Interval History
-
Date of Service: February 07, 2024
Patient seen and examined. No complaints.
Objective Data
-
Vital Signs:
Vital Signs
Temp Pulse Resp BP Pulse Ox
97.5 F 88 18 129/84 91
02/07/24 07:15 02/07/24 08:43 02/07/24 07:15 02/07/24 08:43 02/07/24 07:15
I&O
02/06/24 02/07/24 02/08/24
06:59 06:59 06:59
Intake Total 1680 / 1680 840 / 840
Balance 168 / 1680 840 / 840
Review of Systems
-
History Source: Patient
All other systems: Reviewed and negative
[2024-02-07 13:00] VITALS: BP 133/82; PULSE 74; O2SAT 95
[2024-02-07 15:47] VITALS: BP 110/71
[2024-02-07] MEDS: VITAMIN C 500 MG PO (17:44)
[2024-02-07] MEDS: VITAMIN D3 (cholecalciferol) 125 MCG PO (17:44)
--- NOTE | 2024-02-07 19:54 | W.PN.UPDATE ---
Update Note
Progress Note Update
-Per nursing staff the patient is SOB, coughing, she was eating her dinner at this time. SPO2 91% on RA, afebrile. Patient Placed on 3 L of O2 and SPo2 93%. Denied chest pain.
On exam, patient is coughing, crackles on lung bases.
Will order chest x-ray, covid, flu, lactic acid, abg, troponin and Pro BNP.
-Lactic, covid, flu, troponin are neg.
-Abg unremarkable.
- Chest x-ray result shows Mild elevation of right hemidiaphragm. Minimal left basilar linear opacity most likely subsegmental atelectasis or scarring.
-Pro BNP is 4910, no previous result to compare with. Echocardiogram done 06/20/23/ LV ejection fraction is 60-65%.
-Recheck on the patient, she is feeling better and off the oxygen.
-Will continue duo nebs and O2 as needed
-NPO for now and speech eval in am.
--- NOTE | 2024-02-07 20:30 | PTCARENOTE ---
During walking rounds Pt appeared to be asking for help and stating that she was choking. Pt stated she was eating her dinner. Pt coughing excessively and brining up clear mucus. upon auscultation Pt had anterior chest crackles and coarse lung
sounds. O2 91% on RA. 3L O2 NC applied. Pt at 96%. HEALTH SERVICE WORKER made aware and ordered stat chest xray and labs. Pt made NPO. HEALTH SERVICE WORKER at beside to assess Pt.
[2024-02-07] MEDS: ELIQUIS PO (21:38)
[2024-02-07 21:46] LABS: % Basophils 0.6 % (0-2); % Eosinophils 3.7 % (0-6); % Immature Granulocytes 0.5 % (0-0.5); % Lymphocytes 16.4 % (20.5-51.1); % Monocytes 5.7 % (1.7-9.3); % Neutrophils 73.1 % (42.2-75.2); Absolute Basophils 0.1 10^3/uL (0-0.2); Absolute Eosinophils 0.4 10^3/uL (0-0.7); Absolute Immature Granulocytes 0.1 10^3/uL (0-0.05); Absolute Lymphocytes 1.6 10^3/uL (1.2-3.4); Absolute Monocytes 0.6 10^3/uL (0.1-0.6); Absolute Neutrophils 7.1 10^3/uL (1.4-6.5); Hematocrit 36.2 % (37.0-47.0); Mean Corp Hgb Conc. 33.1 g/dL (33.0-37.0); Mean Corpuscular Hgb 30.2 pg (27.0-31.0); Mean Platelet Volume 9.5 fL (7.4-10.4); Nucleated Red Blood Cells % 0 %; Platelet Count 266 10^3/uL (130-400); Red Blood Cell Count 3.98 10^6/uL (4.20-5.40); Red Cell Dist. Width 14.1 % (11.5-14.5); White Blood Cell Count 9.7 10^3/uL (4.8-10.8)
[2024-02-07 21:52] LABS: Lactic Acid 1.1 mmol/L (0.7-2.0)
[2024-02-07 22:02] LABS: Blood Urea Nitrogen 21 mg/dl (7-17); Calcium 9.3 mg/dl (8.4-10.2); Carbon Dioxide 28 mmol/L (22-30); Chloride 104 mmol/L (98-107); Estimated Creatinine Clearance 29 ml/min; Glucose 105 mg/dl (70-99); Potassium 4.8 mmol/L (3.5-5.1); Sodium 138 mmol/L (135-145); eGFR 54.19
[2024-02-07 22:06] LABS: NT-proBNP 4910 pg/ml; Troponin I < 0.012 ng/ml
[2024-02-07] MEDS: INDERAL PO (22:15)
[2024-02-07 22:25] LABS: B.E. 2.2 mmol/L; HCO3 26.5 mmol/L (21-28); O2 Saturation % 96.1 % (94-98); PCO2 39 mmHg (32-35); PO2 68 mmHg (83-108); pH 7.44 (7.35-7.45)
[2024-02-07] MEDS: LOPRESSOR IV (22:58)
[2024-02-07] MEDS: NEURONTIN PO (23:00)
[2024-02-07] MEDS: MYSOLINE PO (23:00)
[2024-02-07] MEDS: XANAX PO (23:01)
[2024-02-07] MEDS: REMERON PO (23:01)
[2024-02-07 23:03] VITALS: BP 159/106
[2024-02-07] MEDS: LOPRESSOR 2.5 MG IV (23:50)
[2024-02-08] MEDS: MORPHINE SULFATE 1 MG IV (00:37)
[2024-02-08 00:38] LABS: COVID-19 Antigen Negative (Negative)
[2024-02-08 01:30] VITALS: BP 147/97
[2024-02-08 08:00] VITALS: BP 152/87
[2024-02-08] MEDS: ROXICODONE 5 MG PO ×3 (08:25→14:49)
[2024-02-08] MEDS: ELIQUIS 2.5 MG PO ×2 (08:26→20:03)
[2024-02-08] MEDS: CARDIZEM CD 180 MG PO (08:26)
[2024-02-08] MEDS: WELLBUTRIN SR (12 hour sustained release) 100 MG PO (08:26)
[2024-02-08] MEDS: ZESTRIL 20 MG PO (08:26)
[2024-02-08] MEDS: INDERAL 20 MG PO ×2 (08:26→20:03)
[2024-02-08] MEDS: LEXAPRO 20 MG PO (08:26)
[2024-02-08] MEDS: NON-FORMULARY ITEM 1 UNIT PO (08:28)
--- NOTE | 2024-02-08 10:07 | PTOTSP ---
ST Acute Care Evaluation
Pt currently presents with clinical signs of mild oral dysphagia characterized by prolonged mastication and bolus formation as well as reduced bolus formation requiring liquid aid for either bolus formation and/or bolus clearance. No overt s/s of
penetration or aspiration noted at bedside.
Recommendations:
- Initiate PO diet of SOFT BITE SIZED SOLIDS and THIN LIQUIDS with meds as tolerated.
- Aspiration precautions: HOB upright for PO intake; small bites; chew food thoroughly; add moisturizers to foods; alternate bites/sips; eat/drink slowly.
- HANDSTITCHING MACHINE ARMHOLE FELLER to f/u re: diet tolerance and implementation of compensatory strategies.
--- NOTE | 2024-02-08 11:13 | PN.CDI ---
CDI
- -
CDI:
Physician Documentation Request
Admit Date: 02/06/24 11:35
Dear Doctor Jill,
Please review the following and provide your response in the progress notes.
Clinical Indicators:
Pt admitted with Acute traumatic right hip periprosthetic fracture nondisplaced.
Documented per ED, ' Patient states that in the middle of the night, she was leaving the bathroom to go back into bed when she lost her footing and fell onto her right side. She was unable to get up off the floor, she woke up her who
helped her get back into bed...'
Elbow Xray 02/03,' Osteopenia/osteoporosis ...'
Bone density from 01/12/16, ' Osteoporosis. There has been a statistically significant increase in bone mineral density in the lumbar spine since the prior examination...'
Please provide the suspected etiology of the documented fracture:
Multifactorial due to trauma low level fall/ Osteoporosis
Due to low level fall only
Other ( please specify)
Use of terms such as suspected, likely, concern for, or probable (associated with a specific diagnosis that is being evaluated, monitored, or treated as if it exists) are acceptable and can be coded in the inpatient setting, when documented at the
time of discharge.
Thank you,
Jo Jennings RN
CDI Specialist
[facility] [employer]
Please use your independent medical judgment in providing your response.
[2024-02-08 13:01] VITALS: BP 134/78; PULSE 72; O2SAT 95
[2024-02-08 13:02] VITALS: BP 134/78; PULSE 75; O2SAT 95
--- NOTE | 2024-02-08 13:15 | W.PN.HOSP.TC ---
Addendum entered and electronically signed by Te Melchor DO 02/08/24 16:23:
Fracture etiology is likely multifactorial due to trauma low level fall/ Osteoporosis
Original Note:
Today's Communication/Plan
-
Continue current care
Assessment / Plan
Assessment / Plan
Gen-AAOx3, NAD
HEENT-NC, AT, anicteric, clear oral mm
Neck-supple
CV-reg, no M, +S1/S2
Lungs-clear B/L
Abd-soft, NT, ND
Ext-no edema
Musculoskeletal-no cyanosis, clubbing
Skin-warm and dry
Neuro-grossly non-focal
Psych-calm, cooperative
Aspiration event -symptoms resolved. Soft bite-size diet with thin liquids recommended by speech therapy.
Acute traumatic right hip periprosthetic fracture -nondisplaced. Orthopedics recommends nonoperative intervention. Outpatient follow-up.
Permanent atrial fibrillation -continue Eliquis.
Essential hypertension -stable.
Normocytic anemia -hemoglobin stable, 12.0.
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 Baseline unknown. Hold further NSAIDs.
Full code
Dispo -stable for discharge to SNF. Case management aware.
Anticipated Discharge: Within 24 hours
Subjective/Interval History
-
Date of Service: February 08, 2024
Patient seen and examined. No complaints.
Objective Data
-
Vital Signs:
Vital Signs
Temp Pulse Resp BP Pulse Ox
98.2 F 85 18 152/87 95
02/08/24 08:00 02/08/24 08:00 02/08/24 08:00 02/08/24 08:00 02/08/24 08:00
I&O
02/07/24 02/08/24 02/09/24
06:59 06:59 06:59
Intake Total 840 / 840 1080 / 1080
Balance 840 / 840 1080 / 1080
Review of Systems
-
History Source: Patient
All other systems: Reviewed and negative
[2024-02-08] MEDS: TYLENOL 650 MG PO (14:41)
[2024-02-08 16:00] VITALS: BP 113/74
--- NOTE | 2024-02-08 16:23 | CM ---
Chart reviewed
Called the [facility] requesting to review referral in [facility]
Plan - SNF when medically stable and bed obtained
[2024-02-08] MEDS: VITAMIN C 500 MG PO (17:29)
[2024-02-08] MEDS: VITAMIN D3 (cholecalciferol) 125 MCG PO (17:29)
[2024-02-08] MEDS: NEURONTIN 600 MG PO (21:01)
[2024-02-08] MEDS: REMERON 30 MG PO (21:01)
[2024-02-08] MEDS: XANAX 0.5 MG PO (21:01)
[2024-02-08] MEDS: MYSOLINE 25 MG PO (21:06)
[2024-02-08 23:21] VITALS: BP 127/85
[2024-02-09 08:00] VITALS: BP 148/90
[2024-02-09] MEDS: CARDIZEM CD 180 MG PO (08:05)
[2024-02-09] MEDS: WELLBUTRIN SR (12 hour sustained release) 100 MG PO (08:06)
[2024-02-09] MEDS: ELIQUIS 2.5 MG PO (08:06)
[2024-02-09] MEDS: INDERAL 20 MG PO (08:06)
[2024-02-09] MEDS: ZESTRIL 20 MG PO (08:06)
[2024-02-09] MEDS: LEXAPRO 20 MG PO (08:06)
[2024-02-09] MEDS: NON-FORMULARY ITEM 1 UNIT PO (08:07)
[2024-02-09] MEDS: ROXICODONE 10 MG PO ×3 (08:17→16:30)
[2024-02-09 10:04] VITALS: BP 149/94; PULSE 71; O2SAT 95
[2024-02-09 10:05] VITALS: BP 149/94; PULSE 71; O2SAT 95
--- NOTE | 2024-02-09 12:14 | W.PN.HOSP.TC ---
Today's Communication/Plan
-
Discharge planning
Assessment / Plan
Assessment / Plan
Gen-AAOx3, NAD
HEENT-NC, AT, anicteric, clear oral mm
Neck-supple
CV-reg, no M, +S1/S2
Lungs-clear B/L
Abd-soft, NT, ND
Ext-no edema
Musculoskeletal-no cyanosis, clubbing
Skin-warm and dry
Neuro-grossly non-focal
Psych-calm, cooperative
Aspiration event -symptoms resolved. Soft bite-size diet with thin liquids recommended by speech therapy.
Acute traumatic right hip periprosthetic fracture -nondisplaced. Orthopedics recommends nonoperative intervention. Outpatient follow-up.
Permanent atrial fibrillation -continue Eliquis.
Essential hypertension -stable.
Normocytic anemia -hemoglobin stable, 12.0.
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 Baseline unknown. Hold further NSAIDs.
Full code
Dispo -stable for discharge to SNF. Case management aware.
Anticipated Discharge: Today
Subjective/Interval History
-
Date of Service: February 09, 2024
Patient seen and examined. No complaints.
Objective Data
-
Vital Signs:
Vital Signs
Temp Pulse Resp BP Pulse Ox
98.0 F 70 16 148/90 97
02/09/24 08:00 02/09/24 08:00 02/09/24 08:00 02/09/24 08:00 02/09/24 08:00
I&O
02/08/24 02/09/24 02/10/24
06:59 06:59 06:59
Intake Total 1080 / 1080 360 / 360
Balance 1080 / 1080 360 / 360
Review of Systems
-
History Source: Patient
All other systems: Reviewed and negative
--- NOTE | 2024-02-09 12:22 | CM ---
Addendum entered by Shereen Stark 02/09/24 14:06:
Transport at 1730
Pt (niece at bedside) and facility aware
Original Note:
Pt medically ready for discharge
Spoke with pt and her niece at bedside - discussed SNF acceptance - 1st choice [facility], then [facility]
Called [facility] - no beds
Called [facility] - can accept
Pt updated - agreeable to transfer to [facility]
Given IMM
Dr Melchor updated
Plan - transfer to the [facility]
R - [phone]
F - [phone]
--- NOTE | 2024-02-09 12:23 | W.DS.TRANS ---
DC Summary - [employer]
-
Discharge Instructions:
Discharge Diagnosis/Procedures Right hip periprosthetic fracture, ambulatory
dysfunction
Diet Other diet
Additional Diets Soft, bite sized diet
Activity As tolerated,With assistance
Driving Restrictions No driving
Bathing Restrictions None
Instructions:
Stand-Alone Forms:
Changes to Home Medications: No
Discharge Medications:
DC Medications w/original date entered in [email or web address]
ascorbic acid (vitamin C) 500 mg tablet (Vitamin C) 500 mg PO QPM 04/16/15
naloxegol 25 mg tablet (Movantik) 25 mg PO DAILY 04/16/15
apixaban 2.5 mg tablet (Eliquis) 2.5 mg PO BID 06/07/21
mirtazapine 30 mg tablet 30 mg PO HS 06/07/21
primidone 50 mg tablet 25 mg PO HS 06/07/21
bupropion HCl 100 mg tablet,12 hr sustained-release 100 mg PO DAILY 04/21/23
cholecalciferol (vitamin D3) 125 mcg (5,000 unit) tablet 125 mcg PO QPM 04/21/23
escitalopram oxalate 20 mg tablet 10 mg PO DAILY 04/21/23
gabapentin 300 mg capsule 600 mg PO HS 04/21/23
bisacodyl 5 mg tablet,delayed release 10 mg (2 x 5 mg) PO DAILYPRN PRN constipation #0 tabs 04/25/23
diltiazem HCl 180 mg capsule,extended release 24 hr 180 mg PO DAILY #0 caps 04/25/23
lisinopril 40 mg tablet 20 mg (1/2 x 40 mg) PO DAILY #0 tabs 04/25/23
Iron (ferrous sulfate) 02/06/24
alprazolam 0.5 mg tablet (Xanax) 0.5 mg PO HS 02/06/24
propranolol 20 mg tablet 20 mg PO BID 02/06/24
bisacodyl 10 mg rectal suppository 10 mg NH [id number] PRN constipation #0 ea 02/09/24
oxycodone 5 mg tablet 10 mg (2 x 5 mg) PO Q4H PRN severe pain #10 tabs 02/09/24
polyethylene glycol 3350 17 gram oral powder packet 17 g PO DAILYPRN PRN constipation #0 ea 02/09/24
Home Medication Changes
Pending Results: No
[2024-02-09 14:43] VITALS: BP 122/66
[2024-02-09 17:28] VITALS: BP 157/88
--- NOTE | 2024-02-09 17:30 | PTCARENOTE ---
unable to give report [facility].patient does not appear on the incoming list for admissions. attempted to speak to nurse public relations supervisor. call goes to a voicemail
== END 2024-02-09 17:36 | DRG 542 ==
LOC: 2 SOUTH 11:35
PROVIDERS: Emergency Medicine; Nurse Practitioner Family; ADMITTING PHYSICIAN Internal Medicine; ATTENDING PHYSICIAN Hospitalist; CONSULT PHYSICIAN Orthopaedic Surgery; EMERGENCY PHYSICIAN Emergency Medicine; FAMILY PHYSICIAN Family Medicine
DX: M80.051A Age-related osteoporosis with current pathological fracture, right femur, initial encounter for fracture (principal); J69.0 Pneumonitis due to inhalation of food and vomit; I48.21 Permanent atrial fibrillation; M97.01XA Periprosthetic fracture around internal prosthetic right hip joint, initial encounter; J44.9 Chronic obstructive pulmonary disease, unspecified; I12.9 Hypertensive chronic kidney disease with stage 1 through stage 4 chronic kidney disease, or unspecified chronic kidney disease; N18.32 Chronic kidney disease, stage 3b; F17.290 Nicotine dependence, other tobacco product, uncomplicated; E78.5 Hyperlipidemia, unspecified; W01.0XXA Fall on same level from slipping, tripping and stumbling without subsequent striking against object, initial encounter; Z79.01 Long term (current) use of anticoagulants; Z79.899 Other long term (current) drug therapy; Z96.653 Presence of artificial knee joint, bilateral; Z11.52 Encounter for screening for COVID-19
CPT/HCPCS: 36600; 70450; 71045; 72125; 72192; 73070; 73502; 80048; 80053; 82805; 83605; 83880; 84484; 85025; 85027; 87502; 87811; 92610; 96374; 96376; 97116; 97163; 97167; 97530; 97535; 99285

== ENCOUNTER 2024-07-16 16:53 | Emergency (ER) | payer MEDICARE, OTHER, SELFPAY ==
[2024-07-16 17:03] VITALS: BP 104/66
[2024-07-16 19:41] VITALS: BP 121/81
[2024-07-16 20:28] VITALS: BP 132/87
[2024-07-16 21:00] VITALS: BP 138/94
--- NOTE | 2024-07-17 00:13 | ED.MUSCINJ ---
HPI-Injury
General
Chief Complaint: Fall
Source: patient
Exam Limitations: none
Time Seen by Provider: 07/16/24 20:03
Nursing documentation reviewed up to this point in time: agreed with
History of Present Illness-Injury
Is this injury a work related problem?: No
Is pt an associate of [facility]/[place]?: No
Initial Injury comments:
Patient states she fell last PM. Hit her head on the floor. SHe does not recall what caused her to fall. Denies losing consciousness. Complains of pain to left posterior hip. Brought to ED by family for eval. Incident occured last night.
Past History
Past History
ED Past Medical History: Arrthythmia (Atrial fibrillation), COPD, HTN and Other (sciatica)
ED Past Surgical History: Orthopedic
Social History
Tobacco: Smoker (smokes E-cigarettes.Stopped smoking regular cigarettes)
Alcohol: Occasional
Drug: None
Personal:
Living: with family
Review of Systems
Review of Systems
Allergies reviewed?: Yes
All Other Systems: ROS reviewed and negative except as documented in HPI and ROS
Constitutional: Reports no symptoms
EENT: Reports no symptoms
Respiratory: Reports no symptoms
Cardiac: Reports no symptoms
ABD/GI: Reports no symptoms
: Reports no symptoms
Musculoskeletal: Reports joint pain (Pain to left posterior hip.)
Skin: Reports no symptoms
Neurological: Reports no symptoms
Psychiatric: Reports no symptoms
Musculoskeletal Injury Exam
Musculoskeletal Injury Exam
Left Posterior Hip:
Pain with Movement?: Moderate
Tender to palpation?: Moderate
Soft tissue swelling?: None
External deformity and angulation?: None
Contusion?: Moderate
Hematoma-local bleeding into tissue?: None
Strain- Sprain- Tear (Connective tissue injury)?: Moderate
Crepitus with movement?: No
Joint instability?: No
Malalignment/deformity?: No
Range of motion: Limited
Distal skin color and temperature: normal-warm & good color
Capillary Refill: normal
Normal distal neurovascular exam?: Yes
Phy Exam
General Physical Exam
General Presentation: well appearing and no apparent distress
General age: appears stated age
General Skin: warm and dry
General Habitus: normal
General Mental: alert
Pulmonary Exam
Pulmonary Exam: no respiratory distress and chest non tender
Gastrointestinal Exam
Gastrointestinal Exam: non tender and soft
Neurological Exam
Neurological Exam: alert, oriented x3, CN II-XII intact, no sensory deficits and speech normal
Musculoskeletal Exam
Musculoskeletal Exam: neuro vasc intact
Skin Exam
Skin Exam: normal color, warm/dry and no rash
Psychiatric Exam
Psychiatric Exam: normal mood/affect
Injury Course
Orders/Labs/Results
Orders:
Orders
07/16/24 17:06
CT Head W/o Iv Contrast Urgent
Comment:
Reason For Exam: + head strike on Eliquis
07/16/24 20:14
Hip, Left 2-3 Views [CR Hip - LT w/wo Pel 2-3 Vw*] Urgent
Comment:
Reason For Exam: fall
Include a pelvis x-ray?: Yes
Lumbar Spine Complete, 4 View [CR Lumbar Spine Comp Min 4 Vw*] Urgent
Comment:
Reason For Exam: fall
Sacrum/Coccyx 2 View CR [CR Sacrum/coccyx Min 2 View] Urgent
Comment:
Reason For Exam: fall
*Radiology
Radiology exam reviewed: radiology read reviewed
*Pulse Oximetry
Patient hypoxic: no
*Critical Care Note
Total Time (30-74mins, 75-104mins- exclusive of procedures): Not Applicable
Update Note
Update Note:
Patient to ED after falling last PM. COmplains of left hip pain. +head injury. CT of head neg for acute findings. No evidence of hip fx, compression fractures. WIll discharge home, follow up with PCP. Able to bear weight, ambulate safely.
ED Attending Note
-
Portions of this chart may have been created with voice recognition software.� Occasional wrong word or��sound alike� substitutions may have occurred due to the inherent limitations of voice recognition software.
Discharge Plan
Departure
Patient Disposition: Home (Routine Discharge)
Date of Disposition: 07/16/24
Time of Disposition: 21:27
Patient with high blood pressure during this ER visit?: No
Condition: Good
Covid-19: Not Applicable
Discharge Problem:
Head injury, Contusion of hip, Sacral contusion
Instructions: Head Injury in Adults (DC), Contusion (DC), Preventing falls in adults
Prescriptions:
No Action
ascorbic acid (vitamin C) [Vitamin C] 500 MG tablet
500 mg PO QPM
Movantik 25 MG tablet
25 mg PO DAILY
primidone 50 MG tablet
25 mg PO HS
mirtazapine 30 MG tablet
30 mg PO HS
Eliquis 2.5 MG tablet
2.5 mg PO BID
bupropion HCl 100 mg Tablet Sustained-Release 12 Hr
100 mg PO DAILY
escitalopram oxalate 20 mg Tablet
10 mg PO DAILY
Patient Comments:
04/21/2023, pt. unsure if this is morning or evening med.
cholecalciferol (vitamin D3) 125 mcg (5,000 unit) Tablet
125 mcg PO QPM
gabapentin 300 MG capsule
600 mg PO HS
diltiazem HCl 180 mg Capsule,Extended Release 24hr
180 mg PO DAILY Qty: 0 0RF
bisacodyl 5 mg Tablet,Delayed Release (Dr/Ec)
10 mg PO DAILYPRN PRN (Reason: constipation) Qty: 0 0RF
lisinopril 40 mg Tablet
20 mg PO DAILY Qty: 0 0RF
Iron (ferrous sulfate)
alprazolam [Xanax] 0.5 mg Tablet
0.5 mg PO HS
Rx Instructions:
1 or 2 a night
propranolol 20 mg Tablet
20 mg PO BID
bisacodyl 10 mg Suppository
[address] [id number] PRN (Reason: constipation) Qty: 0 0RF
polyethylene glycol 3350 17 gram Powder In Packet
17 g PO DAILYPRN PRN (Reason: constipation) Qty: 0 0RF
oxycodone 5 mg Tablet
10 mg PO Q4H PRN (Reason: severe pain) Qty: 10 0RF
Referrals:
Derrick Olmstead, DO [Family Provider, Family Practice] - Follow up in 2-3 days
Interventions
Interventions:
*Risk Screen - Suicide Last Done: 07/16/24 17:03
*General Assessment Last Done: 07/16/24 17:03
*ED- Fall Risk Assessment Last Done: 07/16/24 22:14
*ED COVID-19 Vaccine History Last Done: 07/16/24 22:14
*Nursing Disposition Last Done: 07/16/24 22:14
ED-Musculoskeletal Assessment Last Done: 07/16/24 21:30
ED- Neurological Assessment Last Done: 07/16/24 20:36
ED-Skin Assessment Last Done: 07/16/24 21:30
Discharge Date and Time
Discharge Date/Time: 07/16/24 22:14
Print Language: SALVADOREAN
== END 2024-07-16 22:14 | disposition home or self-care (01) ==
LOC: EMR 16:53
PROVIDERS: EMERGENCY PHYSICIAN Student in an Organized Health Care Education/Training Program; FAMILY PHYSICIAN Family Medicine
DX: S70.02XA Contusion of left hip, initial encounter (principal); S30.0XXA Contusion of lower back and pelvis, initial encounter; S09.90XA Unspecified injury of head, initial encounter; W19.XXXA Unspecified fall, initial encounter; I48.91 Unspecified atrial fibrillation; J44.9 Chronic obstructive pulmonary disease, unspecified; M54.30 Sciatica, unspecified side; K57.90 Diverticulosis of intestine, part unspecified, without perforation or abscess without bleeding; I12.9 Hypertensive chronic kidney disease with stage 1 through stage 4 chronic kidney disease, or unspecified chronic kidney disease; N18.30 Chronic kidney disease, stage 3 unspecified; M19.90 Unspecified osteoarthritis, unspecified site; F41.9 Anxiety disorder, unspecified; F32.A Depression, unspecified; F17.290 Nicotine dependence, other tobacco product, uncomplicated; Z96.641 Presence of right artificial hip joint; Z96.653 Presence of artificial knee joint, bilateral; Z79.01 Long term (current) use of anticoagulants; Z88.8 Allergy status to other drugs, medicaments and biological substances
CPT/HCPCS: 99284; 70450; 72110; 72220; 73502